=== PATIENT | male | born 1970 | race Caucasian/White ===

== ENCOUNTER 2018-08-16 18:05 | Emergency (ER) | payer OTHER ==
[~2018-08-16] VITALS: Ht 172.7 cm; Wt 90.7 kg
[2018-08-16 18:05] VITALS: BP 130/61
--- NOTE | 2018-08-16 19:33 | NUR ---
Pt w/c assisted to bed 7.
--- NOTE | 2018-08-16 19:50 | NUR ---
48 YO M BIBA DUE TO PT FOUND SLEEPING AT A BUS STOP BY CIVILIAN. PT IS AWAKE, GCS 15. A/O X 4. PT STATES HE DRANK "A LOT" AND SMOKED MARIJUANA TODAY. STRONG ALCOHOL ODOR NOTED. EYES PERRLA. PT HAS SLURRED SPEECH AND IS A POOR HISTORIAN. PT ALSO C/O LEFT ARM PAIN. HE STATES THAT HIS ARM WAS BROKEN BY POLICE. CANNOT PROVIDE ANY MORE DETAILS AT THIS TIME. PT IS GUARDING ARM. NO SWELLING, DISCOLORATION, OR GROSS DEFORMITY NOTED. SKIN PINK, WARM, DRY. BREATHING EVEN, UNLABORED. VSS. PMH-- HTN
--- NOTE | 2018-08-16 20:07 | NUR ---
Dr. Matos examining patient.
[2018-08-16] MEDS ORDERED: NACL 0.9% 1,000 ML IV ONE (20:10)
--- NOTE | 2018-08-16 20:35 | NUR ---
PT IS IN DEEP SLEEP. AROUSABLE TO STIMULI. SP02 SAT AT 90% ON RA. PT PLACED ON 2 LPM O2 VIA NC. SPO2 INCREASED TO 97%.
--- NOTE | 2018-08-16 21:03 | NUR ---
Patient provided with sandwich tray. Pt tolerateing well. IV fluids infusing. VSS. All needs addressed at this time.
--- NOTE | 2018-08-16 22:35 | NUR ---
PT SLEEPING DEEPLY. AROUSABLE TO STIMULI. VSS.
--- NOTE | 2018-08-16 23:12 | NUR ---
PT SLEEPING DEEPLY. AROUSABLE TO STIMULI. VSS.
--- NOTE | 2018-08-17 00:26 | NUR ---
PT SLEEPING DEEPLY. AROUSABLE TO STIMULI. VSS. SKIN PINK, WARM, DRY. BREATHING EVEN, UNLABORED.
--- NOTE | 2018-08-17 01:28 | NUR ---
PT SLEEPING DEEPLY. AROUSABLE TO STIMULI. VSS. SKIN PINK, WARM, DRY. BREATHING EVEN, UNLABORED.
--- NOTE | 2018-08-17 02:40 | NUR ---
PT SLEEPING DEEPLY. AROUSABLE TO STIMULI. VSS. SKIN PINK, WARM, DRY. BREATHING EVEN, UNLABORED.
--- NOTE | 2018-08-17 03:27 | NUR ---
PT SLEEPING DEEPLY. AROUSABLE TO STIMULI. VSS. SKIN PINK, WARM, DRY. BREATHING EVEN, UNLABORED.
--- NOTE | 2018-08-17 04:30 | NUR ---
PT SLEEPING DEEPLY. AROUSABLE TO STIMULI. VSS. SKIN PINK, WARM, DRY. BREATHING EVEN, UNLABORED.
--- NOTE | 2018-08-17 05:30 | NUR ---
PT SLEEPING DEEPLY. AROUSABLE TO STIMULI. VSS. SKIN PINK, WARM, DRY. BREATHING EVEN, UNLABORED.
--- NOTE | 2018-08-17 06:30 | NUR ---
PT IS AWAKE IN BED WITH VSS. PT STATES HE FEELS BETTER AND IS READY FOR DISCHARGE. REQUESTING BUS PASS.
[2018-08-17 07:07] VITALS: BP 140/54
--- NOTE | 2018-08-17 07:07 | NUR ---
Patient discharged with v/s stable. Written and verbal after care instructions given and explained. Patient verbalized understanding. Ambulatory with steady gait. All questions addressed prior to discharge. Advised to follow up with PMD. Provided pt with bus pass.
== END 2018-08-17 07:07 | disposition home or self-care (01) ==
LOC: MED 18:05
DX: F10.129 Alcohol abuse with intoxication, unspecified (principal); Z71.41 Alcohol abuse counseling and surveillance of alcoholic; Y90.8 Blood alcohol level of 240 mg/100 ml or more
CPT/HCPCS: 36415; 99283; G0482; J7030

== ENCOUNTER 2022-04-29 08:50 | Emergency (ER) | payer OTHER ==
[~2022-04-29] VITALS: Ht 165.1 cm; Wt 108.4 kg
--- NOTE | 2022-04-29 08:53 | NUR ---
BIBA TAKEN TO BED 9
[2022-04-29] MEDS ORDERED: levETIRAcetam 1,500 MG in NACL 0.9% 100 ML IV ONE (08:55)
[2022-04-29 08:57] VITALS: BP 142/80
--- NOTE | 2022-04-29 09:18 | NUR ---
ASSUMED PATIENT CARE, NURSING ASSESSMENT COMPLETED.
[2022-04-29 09:22] LABS: BASOPHILS % (AUTO) 0.6 % (0.0-2.0); EOSINOPHILS # (AUTO) 0.1 K/uL (0-0.4); EOSINOPHILS % (AUTO) 1.1 % (0.0-4.0); HEMATOCRIT 46.1 % (36-52); HEMOGLOBIN 15.3 g/dL (12.0-18.0); LYMPHOCYTES % (AUTO) 15.2 % (20.5-51.1); MEAN CORPUSCULAR HEMOGLOBIN 29 pg (27-31); MEAN CORPUSCULAR HGB CONC 33 g/dL (33-37); MEAN CORPUSCULAR VOLUME 87.6 fL (80-94); MONOCYTES # (AUTO) 0.4 K/uL (0.8-1.0); MONOCYTES % (AUTO) 6.7 % (1.7-9.3); NEUTROPHILS # (AUTO) 5.1 K/uL (1.8-7.7); NEUTROPHILS % (AUTO) 76.4 % (42.2-75.2); PLATELET COUNT (AUTO) 128 K/uL (140-450); RED BLOOD CELL COUNT(AUTO) 5.26 MIL/uL (4.20-6.10); RED CELL DISTRIBUTION WIDTH 14.3 % (11.6-13.7); WHITE BLOOD COUNT (AUTO) 6.7 K/uL (4.8-10.8)
[2022-04-29 10:35] LABS: ALBUMIN 4.3 g/dL (3.4-5.0); ANION GAP 25.6 (8-16); CARBON DIOXIDE 15.1 mmol/L (21-32); CREATININE 1.1 mg/dL (0.6-1.3); POTASSIUM 3.7 mmol/L (3.5-5.1); TOTAL BILIRUBIN 0.3 mg/dL (0.0-1.0)
[2022-04-29] MEDS ORDERED: NACL 0.9% 1,000 ML IV ONE (11:00)
[2022-04-29 13:06] LABS: ANION GAP 22.3 (8-16); CARBON DIOXIDE 18.4 mmol/L (21-32); POTASSIUM 3.7 mmol/L (3.5-5.1)
[2022-04-29 13:32] VITALS: BP 135/84
--- NOTE | 2022-04-29 13:35 | NUR ---
Patient discharged with v/s stable. Written and verbal after care instructions given and explained. Patient verbalized understanding. Ambulatory with steady gait. All questions addressed prior to discharge. Advised to follow up with PMD.
--- NOTE | 2022-04-29 14:24 | NUR ---
CALLED JULIEN BISHOP FOR REPORT. PATIENT DC VIA ER.
== END 2022-04-29 13:35 | disposition home or self-care (01) ==
LOC: MED 08:50
DX: G40.909 Epilepsy, unspecified, not intractable, without status epilepticus (principal); E86.0 Dehydration; I10 Essential (primary) hypertension; Z72.89 Other problems related to lifestyle; Z79.899 Other long term (current) drug therapy
CPT/HCPCS: 36415; 80048; 80053; 85025; 93005; 96361; 96365; 99284; J1953

== ENCOUNTER 2022-06-27 09:23 | Emergency (ER) | payer OTHER ==
[~2022-06-27] VITALS: Ht 165.1 cm; Wt 123.8 kg
[2022-06-27] MEDS ORDERED: MIDAZOLAM 5 MG/1 ML VIAL ONE (09:25)
[2022-06-27] MEDS ORDERED: MIDAZOLAM 5 MG/5 ML VIAL IV ONE (09:25)
--- NOTE | 2022-06-27 09:28 | NUR ---
Daniela LEDEZMA ATTENDING; Karrie GARCIA, PHP MAGENTO DEVELOPER; Don JUNIOR RCP ATTENDING; PATIENT PRESENTING WITH INTERMITTENT SEIZURE EPISODE; SUPPLEMENTAL OXYGEN AT 15 LPM VIA NON REBREATHER SATURATION 98%; GOOD CHEST RISE; INTERMITTENT SPONTANEOUS PRODUCTIVE COUGH OROPHARYNGEAL SUCTION FOR MODERATE TO LARGE PALE WHITE TO CLEAR FROTHY SECRETIONS; PHP MAGENTO DEVELOPER TO PREP FOR INTUBATION
[2022-06-27] MEDS ORDERED: INTUBATION KIT MC ONE (09:31)
[2022-06-27] MEDS ORDERED: PROPOFOL 1000 MG/100 ML PREMIX 100 ML IV ONE ×3 (09:39→12:12)
[2022-06-27] MEDS ORDERED: ETOMIDATE 20 MG/10 ML VIAL IVP ONE (09:40)
[2022-06-27] MEDS ORDERED: ROCURONIUM 50 MG/5 ML VIAL IV ONE (09:40)
[2022-06-27] MEDS ORDERED: LORazepam 2 MG/ML VIAL IVP ONE (09:40)
--- NOTE | 2022-06-27 09:42 | NUR ---
DR. BRUNA LEDEZMA AT BEDSIDE FOR INTUBATION; USING A GLIDESCOPE WITH 3 BLADE VOCAL CHORDS VISUALIZED PATIENT SUCCESSFULLY WITH AN ENDOTRACHEAL TUBE #8.0 SECURED AT 22cm WITH AN ANCHOR FAST; VIA A 10cc SYRINGE 8cc OF AIR INSERTED INTO ETT CUFF FOR MOV; ETT PLACEMENT CONFIRMATION CO2 DETECTOR YELLOW; BREATH SOUNDS CLEAR BILATERAL WITH EQUAL CHEST RISE; CXR TO FOLLOW
[2022-06-27 09:44] VITALS: BP 115/77
--- NOTE | 2022-06-27 09:47 | NUR ---
DR. BRUNA RHODES AT BEDSIDE; AWARE OF VENTILATOR OF SETTINGS; SOPHIA ERMD: ABG AFTER 30 MINUTES
--- NOTE | 2022-06-27 09:50 | NUR ---
CXR COMPLETED; PLACEMENT REVIEWED BY DR. RHODES; ETT 5.7cm ABOVE EDMOND; VORBO ERMD: ADVANCE ETT 2cm; 22cm TO 24cm
--- NOTE | 2022-06-27 09:53 | NUR ---
INTUBATION. DR RHODES, RT AND PRIMARY RN AT BEDSIDE. 0935-10MG ETOMIDATE GIVEN IVPUSH 0936-80MG ROCURONIUM GIVEN IVPUSH 0937-PT INTUBATED WITH 8.0 ETTUBE, 23" AT THE LIP. +COLOR CHANGE 0950-OG TUBE INSERTED. 0953- RAD AT BEDSIDE FOR VERIFICATION Addendum: 06/27/22 at 1003 by MEDVN1 20mg ROCURONIUM WASTED WITH BUTCH PALMER.
[2022-06-27 09:55] VITALS: BP 129/95
[2022-06-27] MEDS ORDERED: MIDAZOLAM 5 MG/1 ML VIAL NS ONE (09:55)
--- NOTE | 2022-06-27 09:59 | NUR ---
DIE REPAIR CALLED TO BEDSIDE; CXR REVIEWED BY DR. BRUNA CORTES: ADVANCE ETT 2cm; 24cm TO 26cm; CXR ETT NOW AT 3.3cm ABOVE EDMOND; ERMD AWARE
--- NOTE | 2022-06-27 10:00 | NUR ---
@0937 PT WAS INTUBATED BY DR RHODES. RTS AND RN AT BEDSIDE. PT WAS PREOXYGENATED WITH 100% FIO2 FROM AMBU BAG AND INTUBATED WITH ETT 8.0 SECURED WITH ANCHORFAST @22CM AT TEETH. COLOR CHANGE ON CO2 DETECTOR AND BI LATERAL BREATHE SOUNDS HEARD BY DR RHODES. XRAY WAS ORDERED TO CONFIRM PLACEMENT OF ETT. @941 DR RHODES ORDER TUBE TO BE ADVANCED 2CM DUE TO THE ETT 5.7CM ABOVE EDMOND. PT ETT IS NOW @ 24CM AT TEETH. ABG WAS ORDERED ALONG WITH SPUTUM ORDERED. WILL CONTINUE TO MONITOR.
--- NOTE | 2022-06-27 10:05 | NUR ---
ABG WAS COLLECTED AND RESULTS WERE GIVEN TO DR RHODES. NEW ORDER TO INCREASE RR FROM 18 TO 22 ANDF FIO2 FROM 100% TO 50%. SPUTUM WAS COLLECTED AND SENT TO LAB.
[2022-06-27] MEDS ORDERED: ASPI-1822 PO (10:17)
[2022-06-27] MEDS ORDERED: LEVE750T3 PO (10:17)
[2022-06-27] MEDS ORDERED: AMLO10TA PO (10:17)
--- NOTE | 2022-06-27 10:17 | NUR ---
SIRISHA COLLECTED AND SENT TO LAB
[2022-06-27] MEDS ORDERED: NACL 0.9% 1,000 ML IV ONE (10:20)
[2022-06-27 10:26] LABS: BASOPHILS # (AUTO) 0.1 K/uL (0.00-0.22); BASOPHILS % (AUTO) 1.1 % (0.0-2.0); EOSINOPHILS # (AUTO) 0.1 K/uL (0-0.4); HEMATOCRIT 45.3 % (36-52); HEMOGLOBIN 15.2 g/dL (12.0-18.0); LYMPHOCYTES # (AUTO) 0.7 K/uL (2.0-11.5); MEAN CORPUSCULAR HEMOGLOBIN 29 pg (27-31); MEAN CORPUSCULAR HGB CONC 34 g/dL (33-37); MEAN CORPUSCULAR VOLUME 87.5 fL (80-94); MONOCYTES # (AUTO) 0.5 K/uL (0.8-1.0); MONOCYTES % (AUTO) 4.9 % (1.7-9.3); NEUTROPHILS # (AUTO) 8.6 K/uL (1.8-7.7); PLATELET COUNT (AUTO) 135 K/uL (140-450); RED BLOOD CELL COUNT(AUTO) 5.18 MIL/uL (4.20-6.10); RED CELL DISTRIBUTION WIDTH 14.5 % (11.6-13.7); WHITE BLOOD COUNT (AUTO) 9.9 K/uL (4.8-10.8)
[2022-06-27] MEDS: levETIRAcetam 1,500 MG in NACL 0.9% 100 ML IV SCH ×3 (10:37→11:20)
[2022-06-27 10:41] LABS: APPEARANCE,URINE CLEAR (CLEAR); BILIRUBIN,URINE NEGATIVE (NEGATIVE); BLOOD, URINE 1+ (NEGATIVE); COLOR,URINE YELLOW (YELLOW); LEUKOCYTE ESTERASE ,URINE NEGATIVE (NEGATIVE); NITRITE, URINE NEGATIVE (NEGATIVE)
[2022-06-27 11:03] LABS: UGLUCOSE 3+ (NEGATIVE)
[2022-06-27 11:10] LABS: ALBUMIN 3.9 g/dL (3.4-5.0); ANION GAP 14.6 (8-16); ASPARTATE AMINOTRANSFERASE 30 U/L (15-37); CARBON DIOXIDE 24.1 mmol/L (21-32); CHLORIDE 101 mmol/L (98-107); CREATININE 0.9 mg/dL (0.6-1.3); GFR ARICAN-AMERICAN 115 mL/min (>90); GLUCOSE 146 mg/dL (74-106); POTASSIUM 3.7 mmol/L (3.5-5.1); SODIUM SERUM 136 mmol/L (136-145); TOTAL BILIRUBIN 0.3 mg/dL (0.0-1.0); UREA NITROGEN, BLOOD 6 mg/dL (7-18)
--- NOTE | 2022-06-27 11:23 | NUR ---
CALLED [facility], GAVE REPORT TO SPENCER MATHEWS.
[2022-06-27 11:24] LABS: BARBITURATE, URINE NEGATIVE ng/ml (NEG <=200); BENZODIAZEPINE, URINE NEGATIVE ng/mL (NEG <=200); CANNABINOID, URINE POSITIVE ng/mL (NEG <=50); COCAINE, URINE NEGATIVE ng/mL (NEG <=300); OPIATE, URINE NEGATIVE ng/mL (NEG <=2000); PHENCYCLIDINE SCREEN,URINE NEGATIVE ng/mL (NEG <=25)
[2022-06-27 11:28] VITALS: BP 145/72
--- NOTE | 2022-06-27 11:28 | NUR ---
STABLE SLIGHTLY IRRITABLE GOOD CHEST RISE AIRWAY PATENT; PREP FOR TRANSFER TO CT SCAN
--- NOTE | 2022-06-27 11:32 | NUR ---
TRANSFERRED TO RADIOLOGY FOR CT SCAN OF HEAD; REMOVED PATIENT FROM VENTILATOR PLACED ON SUPPLEMENTAL OXYGEN AT 15 LPM VIA E-TANK TO AMBU BAG/INLINE SUCTION CATHETER/HME/ETT; BAG DEPRESSION EVERY 6-8 SECONDS; TOLERATED TRANSFERS WELL WITHOUT ADVERSE REACTIONS NOTED SATURATION 99% HR 102
[2022-06-27 11:33] LABS: RBC,URINE 0-5 /HPF (0-5)
[2022-06-27 11:41] LABS: PROTHROMBIN TIME 10.4 secs (10.8-13.4)
--- NOTE | 2022-06-27 11:45 | NUR ---
accompanied to ct with rt and rn.
--- NOTE | 2022-06-27 11:57 | NUR ---
[facility] AT BEDSIDE FOR TRANSPORT
--- NOTE | 2022-06-27 12:25 | NUR ---
[facility] AT BEDSIDE. ARABELLA PALMER WITH [facility] TAKING OVER CARE.
[2022-06-27 12:41] VITALS: BP 105/76
--- NOTE | 2022-06-27 12:43 | NUR ---
Patient to be transferred to [facility] ER. Is being transferred due to . Receiving facility has accepting physician and available space. ER physician has signed transfer form. Patient or responsible alliance party has agreed to transfer and signed form. Patient belongings inventoried and will be sent with patient. Copy of nursing notes, lab reports, EKG, Physicians Orders and X-rays to be sent with patient. Report called to BISI PALMER at receiving facility. [facility] ambulance service was called for transfer. Mayda butler [facility] received patient care and report
[2022-06-27] MEDS ORDERED: levETIRAcetam 4,500 MG in NACL 0.9% 100 ML IV SCH (21:00)
== END 2022-06-27 12:41 | disposition short-term general hospital (02) ==
LOC: MED 09:23
DX: G40.909 Epilepsy, unspecified, not intractable, without status epilepticus (principal); Z20.822 Contact with and (suspected) exposure to COVID-19; J66.8 Airway disease due to other specific organic dusts; D69.6 Thrombocytopenia, unspecified; I10 Essential (primary) hypertension; F12.90 Cannabis use, unspecified, uncomplicated
CPT/HCPCS: 31500; 36415; 36600; 70450; 71045; 80053; 80173; 80305; 81001; 81003; 82550; 82803; 84484; 85025; 85610; 85730; 87426; 89220; 93005; 94760; 94770; 96361; 96365; 96375; 99291; J1953; J2060; J2250; J2704; J3490; J7030; Q0092

== ENCOUNTER 2022-08-09 17:07 | Inpatient (IN) | payer OTHER ==
[~2022-08-09] VITALS: Ht 180.3 cm; Wt 116.1 kg
[2022-08-09] VITALS (7 sets, daily range): BP systolic 74–124; BP diastolic 55–85; PULSE 85–148; RESP 10–25; TEMP 97.6; O2SAT 93–100
[~2022-08-09 17:07] MED LIST: AMLO10TA PO; ASPI-1822 PO; LEVE750T3 PO
--- NOTE | 2022-08-09 17:09 | NUR ---
52 YO M PT OPAL W/ACTIVE SEIZUREMD AND ER STAFF AT BEDSIDE
[2022-08-09] MEDS ORDERED: NACL 0.9% 1,000 ML IV ONE (17:20)
[2022-08-09] MEDS ORDERED: LORazepam 2 MG/ML VIAL IVP ONE (17:20)
--- NOTE | 2022-08-09 17:27 | NUR ---
INTUBATION PER MD VITAL 1727 - ETOMIDATE 40MG IVP 1728 - ROCURONIUM 200MG IVP 1730 - 21 MEASURE AT TEETH, 8.0 SIZE TUBE
[2022-08-09] MEDS ORDERED: ROCURONIUM 50 MG/5 ML VIAL IV ONE ×2 (17:50→20:00)
[2022-08-09] MEDS ORDERED: ETOMIDATE 20 MG/10 ML VIAL IVP ONE ×2 (17:50→20:00)
[2022-08-09] MEDS ORDERED: levETIRAcetam 1,000 MG in NACL 0.9% 100 ML IV ONE (17:50)
--- NOTE | 2022-08-09 17:54 | NUR ---
SIRISHA SWABBED AT THIS TIME
--- NOTE | 2022-08-09 18:20 | NUR ---
Note undone in EDM - 08/09/22 at 1930 by MEDPMR 52 Y/O MALE OPAL FROM [facility], PT HAD WITNESSED SEIZURE AT FACILITY, PT FELL ON CARPET AFTER SEIZURE, TONIC CLONIC FOR 2 MINUTES AND HAD 1 MORE EPISODE LASTING 2 MINUTES EN ROUTE. PT WAS GIVEN 10MG VERSED INH. PT HAS GTUBE IN PLACE AND TRACH TO VENT. PATIENT POSITIONED FOR COMFORT; HOB ELEVATED; BEDRAILS UP X2; BED DOWN. ER MD MADE AWARE OF PT STATUS. PMH: CHRONIC RESPIRATORY FAILURE, VENTILATOR DEPENDENT, GASTROSTOMY, DM2, CEREBRAL PALSY, EPILEPSY, ANEMIA, ESBL, HLD, ASTHMA, TYPE 1 DIABETES, ACUTE EMBOLISM NKA
--- NOTE | 2022-08-09 18:20 | NUR ---
52 Y/O MALE BIBA FROM [facility], PT HAD WITNESSED SEIZURE AT FACILITY, PT FELL ON CARPET AFTER SEIZURE, TONIC CLONIC FOR 2 MINUTES AND HAD 1 MORE EPISODE LASTING 2 MINUTES EN ROUTE. PT WAS GIVEN 10MG VERSED INH. PATIENT POSITIONED FOR COMFORT; HOB ELEVATED; BEDRAILS UP X2; BED DOWN. ER MD MADE AWARE OF PT STATUS. PMH: CHRONIC RESPIRATORY FAILURE, VENTILATOR DEPENDENT, GASTROSTOMY, DM2, CEREBRAL PALSY, EPILEPSY, ANEMIA, ESBL, HLD, ASTHMA, TYPE 1 DIABETES, ACUTE EMBOLISM NKA
--- NOTE | 2022-08-09 18:24 | NUR ---
PT RETURNED BACK FROM CT
--- NOTE | 2022-08-09 18:25 | NUR ---
Took pt to ct from ER on 100% FiO2 w/ BMV w/o incident, pt is now back in ER on CARESCAPE vent that is plugged into red outlet, pt was sxn for large clear thick secretions, airway is patent and secure, no signs of respiratory distress noted at this time.
[2022-08-09] MEDS ORDERED: PIPERACILLIN/TAZOBACTAM 3.375 GM in DEXTROSE 5% 50 ML IV ONE (18:30)
[2022-08-09 18:47] LABS: BASOPHILS % (AUTO) 0.3 % (0.0-2.0); EOSINOPHILS # (AUTO) 0.1 K/uL (0-0.4); EOSINOPHILS % (AUTO) 0.3 % (0.0-4.0); HEMATOCRIT 46.2 % (36-52); HEMOGLOBIN 15.6 g/dL (12.0-18.0); LYMPHOCYTES # (AUTO) 1.2 K/uL (2.0-11.5); LYMPHOCYTES % (AUTO) 7.1 % (20.5-51.1); MEAN CORPUSCULAR HEMOGLOBIN 29 pg (27-31); MEAN CORPUSCULAR HGB CONC 34 g/dL (33-37); MEAN CORPUSCULAR VOLUME 86.8 fL (80-94); MONOCYTES # (AUTO) 1.5 K/uL (0.8-1.0); MONOCYTES % (AUTO) 9.2 % (1.7-9.3); NEUTROPHILS # (AUTO) 13.5 K/uL (1.8-7.7); NEUTROPHILS % (AUTO) 83.1 % (42.2-75.2); PLATELET COUNT (AUTO) 162 K/uL (140-450); RED BLOOD CELL COUNT(AUTO) 5.32 MIL/uL (4.20-6.10); RED CELL DISTRIBUTION WIDTH 14.3 % (11.6-13.7); WHITE BLOOD COUNT (AUTO) 16.2 K/uL (4.8-10.8)
--- NOTE | 2022-08-09 18:47 | NUR ---
Dr. Hayes ordered to advance ETT 4cm. ETT is now 24cm at teeth. Airway patent and secure no signs of respiratory distress noted at this time.
[2022-08-09] MEDS ORDERED: PIPERACILLIN/TAZOBACTAM 3.375 GM VIAL IV ONE (18:54)
[2022-08-09] MEDS ORDERED: PROPOFOL 1000 MG/100 ML PREMIX 100 ML IV ONE ×3 (18:54→23:13)
[2022-08-09] MEDS ORDERED: levETIRAcetam 100 MG/ML VIAL IV ONE ×2 (18:55→22:55)
[2022-08-09 19:09] LABS: ALBUMIN 4.3 g/dL (3.4-5.0); ANION GAP 15.9 (8-16); ASPARTATE AMINOTRANSFERASE 34 U/L (15-37); CARBON DIOXIDE 25.5 mmol/L (21-32); CHLORIDE 100 mmol/L (98-107); CREATININE 0.8 mg/dL (0.6-1.3); GFR ARICAN-AMERICAN 131 mL/min (>90); GLUCOSE 125 mg/dL (74-106); POTASSIUM 3.4 mmol/L (3.5-5.1); SALICYLATE < 2.8 mg/dL (2.8-20.0); SODIUM SERUM 138 mmol/L (136-145); TOTAL BILIRUBIN 0.5 mg/dL (0.0-1.0); UREA NITROGEN, BLOOD 10 mg/dL (7-18)
[2022-08-09 19:10] LABS: ACETAMINOPHEN < 0.5 ug/ml (10-30)
--- NOTE | 2022-08-09 19:15 | NUR ---
Pt report given to CHRIS PALMER. Transfer of care at this time.
--- NOTE | 2022-08-09 19:25 | NUR ---
Propofol drip started.
--- NOTE | 2022-08-09 19:30 | NUR ---
Urine collected and sent to lab.
--- NOTE | 2022-08-09 19:40 | NUR ---
RT by bedside at this time.
[2022-08-09 19:42] LABS: APPEARANCE,URINE CLEAR (CLEAR); BILIRUBIN,URINE NEGATIVE (NEGATIVE); BLOOD, URINE TRACE-I (NEGATIVE); COLOR,URINE YELLOW (YELLOW); LEUKOCYTE ESTERASE ,URINE TRACE (NEGATIVE); NITRITE, URINE NEGATIVE (NEGATIVE); UGLUCOSE TRACE (NEGATIVE)
--- NOTE | 2022-08-09 19:46 | NUR ---
PER ABG RESULTS DR. MONTANEZ ORDERED TO INCREASE RR TO 27 BPM. NO SIGNS OF RESPIRATORY DISTRESS NOTED AT THIS TIME. Addendum: 08/10/22 at 0134 by Mehdi Berry RT CORRECTION: INCREASE RR TO 24BPM
--- NOTE | 2022-08-09 19:56 | NUR ---
ADVANCED ETT TO [address] MONTANEZ, AIRWAY SECURE AND PATENT, NO SIGNS OF RESPIRATORY DISTRESS NOTED AT THIS TIME.
--- NOTE | 2022-08-09 20:10 | NUR ---
Pt agitated and restless despite propofol drip running. ERMD was made aware and new orders were received.
[2022-08-09] MEDS ORDERED: MORPHINE SULFATE 4 MG/ML SYR IVP PRN (20:35)
[2022-08-09] MEDS ORDERED: MAG SULF 2000 MG/WATER PREMIX 50 ML IV PRN (20:35)
[2022-08-09] MEDS ORDERED: ONDANSETRON 4 MG/2 ML VIAL IVP PRN (20:35)
[2022-08-09 20:36] LABS: BARBITURATE, URINE NEGATIVE ng/ml (NEG <=200); BENZODIAZEPINE, URINE NEGATIVE ng/mL (NEG <=200); CANNABINOID, URINE POSITIVE ng/mL (NEG <=50); COCAINE, URINE NEGATIVE ng/mL (NEG <=300); OPIATE, URINE NEGATIVE ng/mL (NEG <=2000); PHENCYCLIDINE SCREEN,URINE NEGATIVE ng/mL (NEG <=25)
[2022-08-09] MEDS ORDERED: LORazepam 2 MG/ML VIAL IVP PRN (20:40)
[2022-08-09] MEDS ORDERED: MIDAZOLAM MDV 50 MG/10 ML VIAL IV ONE (20:47)
[2022-08-09] MEDS: MIDAZOLAM MDV 50 MG in NACL 0.9% 40 ML IV SCH (21:06)
--- NOTE | 2022-08-09 21:29 | NUR ---
Pt resting comfortably at this time. VSS.
--- NOTE | 2022-08-09 21:45 | NUR ---
Report given to Sandra PALMER
--- NOTE | 2022-08-09 21:50 | NUR ---
TRANSFER OF CARE FROM ER, [facility]. PATIENT ARRIVED TO ICU VIA GURNEY. PATIENT HAS OG TUBE AND IS INTUBATED AND SEDATED WITH THE FOLLOWING VENT SETTINGS: AC/VC, FIO2 = 100%, VT = 500, R = 24, P = 5. VITALS AT TIME OF ADMISSION ARE FOLLOWS, HR = 95, BP = 114/82, R = 24, O2 SAT = 100%, TEMP = 97.1F. PATIENT HAS RIGHT EJ 20G PERIPHERAL LINE, RIGHT HAND 22G PERIPHERAL LINE, AND LEFT THUMB 22G PERIPHERAL LINE. PATIENT HAS SHAW CATHETER IN PLACE WITH YELLOW CLEAR URINE IN THE URINE COLLECTION BAG. PATIENT HAS BILATERAL SOFT WRIST RESTRAINTS. THE FOLLOWING MEDICATIONS ARE INFUSING AT TIME OF ADMISSION, PROPOFOL 1000MG AT 30MCG/KG/MIN AND VERSED 2MG/HR
--- NOTE | 2022-08-09 22:00 | NUR ---
Transfer of care to Sandra PALMER
[2022-08-09] MEDS: DEXT 5% / NACL 0.9% 500 ML IV SCH (23:07)
[2022-08-09] MEDS: levETIRAcetam 1,000 MG in NACL 0.9% 100 ML IV SCH (23:07)
[2022-08-09] MEDS: PROPOFOL 1000 MG/100 ML PREMIX 100 ML IV PRN (23:13)
[2022-08-10] VITALS (34 sets, daily range): BP systolic 80–151; BP diastolic 53–97; PULSE 43–78; RESP 15–25; TEMP 97.4–98.1; O2SAT 98–100
[2022-08-10] MEDS ORDERED: PIPERACILLIN/TAZOBACTAM 3.375 GM VIAL IV ONE ×2 (00:41→05:56)
[2022-08-10] MEDS: PIPERACILLIN/TAZOBACTAM 3.375 GM in DEXTROSE 5% 50 ML IV SCH ×4 (01:01→17:32)
--- NOTE | 2022-08-10 01:21 | NUR ---
SPO2 READING 100%. FiO2 TITRATED FROM 100% TO 80%. SPO2 100%. PT IS TOLERATING AT THIS TIME. NO RESPIRATORY DISTRESS NOTED. RN NOTIFIED. WILL CONTINUE TO MONITOR PT.
[2022-08-10] MEDS: DEXT 5% / NACL 0.9% 500 ML IV SCH ×4 (02:20→17:31)
--- NOTE | 2022-08-10 02:43 | NUR ---
CALL PLACED TO [facility], SPOKE WITH ATTILA AND REQUESTED THAT DR. KOCH IS PAGED. PATIENT WITH HYPOTENSION xAPPROXIMATELY HOURS, PROPOFOL HAS BEEN TITRATED DOWN TO 30 FROM 50, PATIENT IS RECEIVING IVF AT 100MLS/HR AND BLOOD PRESSURE HAS NOT IMPROVED. Addendum: 08/10/22 at 4562 by Sandra Fitch RN CALL WAS PLACED AT [phone]
--- NOTE | 2022-08-10 02:52 | NUR ---
CALL PLACED TO [facility], SPOKE WITH SHAAN AND REQUESTED THAT DR. KOCH IS PAGED. PATIENT WITH HYPOTENSION xAPPROXIMATELY HOURS, PROPOFOL HAS BEEN TITRATED DOWN TO 30 FROM 50, PATIENT IS RECEIVING IVF AT 100MLS/HR AND BLOOD PRESSURE HAS NOT IMPROVED.
--- NOTE | 2022-08-10 02:54 | NUR ---
RECEIVED CALL BACK FROM DR. KOCH, PROVIDED UPDATE ON PATIENTS CURRENT STATUS, RECEIVED ORDERS FOR LEVOPHED
[2022-08-10] MEDS ORDERED: NOREPINEPHRINE 4 MG in DEXTROSE 5% 250 ML IV PRN (03:00)
[2022-08-10] MEDS: PROPOFOL 1000 MG/100 ML PREMIX 100 ML IV PRN ×5 (03:48→22:22)
[2022-08-10] MEDS ORDERED: PROPOFOL 1000 MG/100 ML PREMIX 100 ML IV ONE (03:48)
--- NOTE | 2022-08-10 04:14 | NUR ---
SPO2 READING 100%. FiO2 TITRATED FROM 80% TO 50%. SPO2 98%. PT IS TOLERATING AT THIS TIME. NO RESPIRATORY DISTRESS NOTED. RN NOTIFIED. WILL CONTINUE TO MONITOR PT.
[2022-08-10 05:24] LABS: BASOPHILS # (AUTO) 0.1 K/uL (0.00-0.22); BASOPHILS % (AUTO) 0.8 % (0.0-2.0); EOSINOPHILS # (AUTO) 0.1 K/uL (0-0.4); EOSINOPHILS % (AUTO) 0.7 % (0.0-4.0); HEMOGLOBIN 13.6 g/dL (12.0-18.0); LYMPHOCYTES # (AUTO) 1.8 K/uL (2.0-11.5); LYMPHOCYTES % (AUTO) 15.8 % (20.5-51.1); MEAN CORPUSCULAR HEMOGLOBIN 30 pg (27-31); MEAN CORPUSCULAR HGB CONC 34 g/dL (33-37); MEAN CORPUSCULAR VOLUME 86.8 fL (80-94); MONOCYTES # (AUTO) 1.2 K/uL (0.8-1.0); MONOCYTES % (AUTO) 10.6 % (1.7-9.3); NEUTROPHILS # (AUTO) 8.4 K/uL (1.8-7.7); NEUTROPHILS % (AUTO) 72.1 % (42.2-75.2); PLATELET COUNT (AUTO) 160 K/uL (140-450); RED BLOOD CELL COUNT(AUTO) 4.61 MIL/uL (4.20-6.10); RED CELL DISTRIBUTION WIDTH 14.3 % (11.6-13.7); WHITE BLOOD COUNT (AUTO) 11.6 K/uL (4.8-10.8)
[2022-08-10 05:26] LABS: ANION GAP 13.4 (8-16); CREATININE 0.9 mg/dL (0.6-1.3); POTASSIUM 3.4 mmol/L (3.5-5.1)
--- NOTE | 2022-08-10 05:32 | NUR ---
SPO2 READING 100%. FiO2 TITRATED FROM 50% TO 40%. SPO2 99%. PT IS TOLERATING AT THIS TIME. NO RESPIRATORY DISTRESS NOTED. RN NOTIFIED. WILL CONTINUE TO MONITOR PT.
--- NOTE | 2022-08-10 07:09 | NUR ---
[facility], REPORT ENDORSED TO JAMIL
[2022-08-10] MEDS ORDERED: MIDAZOLAM MDV 50 MG/10 ML VIAL IV ONE (07:14)
[2022-08-10] MEDS: MIDAZOLAM MDV 50 MG in NACL 0.9% 40 ML IV SCH (07:20)
--- NOTE | 2022-08-10 07:30 | NUR ---
IV site 22 g, to RIGHT hand removed intact. R hand with slight swelling, no wounds noted. Pt. tolerated with no difficulty.
--- NOTE | 2022-08-10 07:30 | NUR ---
Report received from film processing shift supervisor Sandra RN, Pt. in room 1. Pt is orally intubated with ET in place secured. Vent at A/C VC 40 FiO2. Pt. tolerating with no diff. No acute distress. No resp. diff. Tate cath in place draining clear and yellow urine. IV site to left thumb in place intact infusing with no diff. IV site to Right hand swollen site and will be D/C soon. No IV fluid or solution infusing at the moment. Will cont. to monitor/
[2022-08-10] MEDS ORDERED: hePARIN / DEXT 5% PREMIX 250 ML IV ONE (07:52)
--- NOTE | 2022-08-10 08:58 | NUR ---
PATIENT HAS BEEN SCREENED AND CATEGORIZED MODERATE NUTRITION RISK. PATIENT WILL BE SEEN WITHIN 3-5 DAYS OF ADMISSION. 08/12/22-08/14/[address]
--- NOTE | 2022-08-10 09:04 | NUR ---
PT. WITH LOW JOHNATHON SCALE AT MODERATE TO HIGH RISK, CONTINUE TO FOLLOW PRESSURE INJURY PREVENTION INTERVENTIONS. -POSITIONING: TURN AND REPOSITION PATIENT Q 2H OR SOONER USE PILLOWS TO KEEP BONY PROMINENCES FROM DIRECT CONTACT WITH SURFACES USE REPOSITIONING WEDGES TO PROVIDE 30-DEGREE ANGLE FOR SIDE LYING POSITIONS OFFLOADING OR FOAM DRESSING TO ALL TUBING TO PREVENT MEDICAL DEVICES RELATED PRESSURE INJURY -RE-EVALUATING AND MANAGING INCONTINENCE MONITOR SKIN CONDITION DURING POSITION CHANGE DO NOT MASSAGE REDNESS, BONY PROMINENCES FREQUENT AGNES-CARE AND PROVIDE BARRIER CREAMS PRN IF SOILING MOISTURE CONTROL BY OFFER BED CHAVEZ/URINAL /ABSORBENT PAD TO WICK AND HOLD MOISTURE KEEP SKIN DRY AND PROTECT FROM FRICTION -MANAGE FRICTION/SHEAR/MOBILITY KEEP HOB AT THE LOWEST LEVEL OF ELEVATION NO MORE THAN 30 DEGREE UNLESS OTHERWISE CONTRAINDICATED USE LIFT SHEET OR TRANSFER DEVICE TO MOVE PATIENT AND PREVENT LATERAL SHEER. PROTECT HEELS, ELBOWS BONY PROMINENCES WITH SKIN BERRIES OR FOAM DRESSING IF EXPOSED TO FRICTION OFFLOAD BILATERAL HEELS BY PLACING PILLOWS UNDER CALVES AT ALL TIMES, UNLESS OTHERWISE CONTRAINDICATED -PRESSURE REDISTRIBUTION SURFACE THERAPY MANUEL ISOFLEX MATTRESS -NUTRITION: PLEASE FOLLOW RD RECOMMENDATIONS AND OFFER NUTRITION SUPPLEMENTS IF ORDERED. PLEASE CONTACT WOUND CARE NURSE FOR ANY QUESTION AND CHANGE OF WOUND CONDITION.
--- NOTE | 2022-08-10 09:12 | NUR ---
DC PLANNING A 52 YO RESIDENT OF [facility] ADMITTED FOR TONIC CLONIC -SIZURE PMX SEIZURES ON KERA.PATINET HAD WITNESSED FALL.IN ED PATIENT WAS GIVEN VERSED AND ATIVAN FOR CONTINUED SEIZURE AND WAS INTUBATED FOR AIRWAY PROTECTION.WAS PLACED ON PROPOFOL FOR SEDATION.CXR SUGGESTIVE OF PNEUMONIA.ON ZOSYN AND LEVETIRACETAM .CT HEAD NEGATIVE FOR IC BLEED OR MASS EFFECT.COVID (-).WBC 16.2UDS (+) FOR THC.PULMO ON BOARD.DC PLAN -BACK TO [facility] WHEN PATIENT RESPONDS TO TX.CM TO FOLLOW. Addendum: 08/13/22 at 1052 by ROSINA TIRADO CM FAXED INSURANCE [facility] REQUESTING AUTH FOR A NEUROLOGIST FOLLOW UP IN 1-2 WEEKS. Addendum: 08/13/22 at 1344 by MIKE RODRIGUEZ CM DC PLANNING PATIENT SELF EXTUBATED AT 08/11/22.ON 4L NASAL CANNULA NOW.CXR 08/10 WITH IMPROVED AERATION RIGHT LUNGS.WBC DOWN TO 6.6.PATIENT WILL GO BACK TO [facility]ISTED [facility]IV[facility] TODAY.CHANDAN FROM [facility] NOTIFIED.ADVISED TATIANA AT [facility] .PATIENT TO GO TO ROOM 105.SEEN BY PT AND RECOMMENDED BACK TO ASSISTED LIVING WITH ASSIST.ICU NURSE TO GIVE REPORT TO [facility].
[2022-08-10] MEDS: levETIRAcetam 1,000 MG in NACL 0.9% 100 ML IV SCH (09:21)
--- NOTE | 2022-08-10 10:00 | NUR ---
Shift update, remains orally intubated with ET in place. Vent at A/C VC 40% FiO2. Oral Gastric tube in place tapped with ET and secured. NO suction at this time. OG tube capped and not being used now. Pt. tolerating with no diff. No acute distress. No resp. diff. Tate cath in place draining clear and yellow urine. IV site to left thumb in place intact infusing with no diff. Order to PICC line place obtained and PICC placement RN has been called and scheduled to come in. Pt.'s mother at bedside visiting pt. Will cont. to monitor.
--- NOTE | 2022-08-10 11:15 | NUR ---
PICC line RN arrived to place line. Pt. with no change is status. NO acute distress. NO SOB. Will cont. to monitor.
--- NOTE | 2022-08-10 11:50 | NUR ---
PICC line RN finished placing central line. Dressing intact and flushing with no difficulty. Per PICC line RN line can be used after X-ray were done to confirm proper placement. IV fluids switched to PICC line for infusion. Pt. with no change in status.
--- NOTE | 2022-08-10 12:00 | NUR ---
Pt.'s mother at beside visiting. Pt. remains sedated but easily aroused. Pt. is able to follow simple commands and move left and right fingers as commanded. Pt. also follows commands to move toes appropriately. No seizure activity noted. Pt. still intubated with no acute distress. Seizure precautions in place. Pt. with no acute distress.
[2022-08-10] MEDS ORDERED: MIDAZOLAM MDV 100 MG in NACL 0.9% 80 ML IV PRN (14:55)
[2022-08-10] MEDS ORDERED: MIDAZOLAM MDV 50 MG in NACL 0.9% 40 ML IV PRN (15:20)
--- NOTE | 2022-08-10 16:00 | NUR ---
Pt. remains orally intubated with ventilator at bedside, tolerating with no diff. Tate cath in place with clear yellow urine. Pt. denies pain, no sx of pain. IV fluid infusing to R UPPER arm PICC line with dressing intact. No SOB, no acute distress. Total hygiene care provided, all linen changed, bed bath done.
--- NOTE | 2022-08-10 16:11 | NUR ---
Security Coordinator SUPERVISOR LIVESTOCK YARD conducted a Discharge Planning Assessent. Pt. is intubated in ICU. SUPERVISOR LIVESTOCK YARD called Pts. Assisted Living, [facility], but noone answered phone. After two attempts, SUPERVISOR LIVESTOCK YARD called Pts. mom, Rosangela who was able to answer questions for the Discharge Planning Assessment. Mom stated pt. resides at the [facility] for the past 6 mo. and prior to that he resided at [facility]. Pt. once took off and left this facility and went to the liquor store then became lost. Later the police found him curled up in a ball. Mom stated pt. was scared and fearful. Mom stated pt. has seizures and everytime he has one, "He losing oxygen and his brain does not function right" Mom stated she has Huntingons Disease and feels pt. may be at risk of getting it. SUPERVISOR LIVESTOCK YARD stated she will inform the CM. SUPERVISOR LIVESTOCK YARD leaned pt. is high functioning and according to mom, is able to do his daily activities. SUPERVISOR LIVESTOCK YARD will remain available as needed.
--- NOTE | 2022-08-10 17:36 | NUR ---
Shift update, remains orally intubated with ET in place. Vent at A/C VC 30% FiO2. Oral Gastric tube in place tapped with ET and secured. NO suction at this time. OG tube capped and not being used now. Pt. tolerating with no diff. No acute distress. No resp. diff. Tate cath in place draining clear and yellow urine. PICC line to right upper arm with dressing intact and IV fluid infusing with no diff. Will cont. to monitor.
--- NOTE | 2022-08-10 18:24 | NUR ---
Dr. Phillips, Neurologist, at bedside to examine pt.
--- NOTE | 2022-08-10 19:09 | NUR ---
Report endorsed to mine shifter SPENCER Lemons Pt. remains orally intubated with ET in place. Vent at A/C VC 30% FiO2, rate 24. Oral Gastric tube in place tapped with ET and secured. NO suction at this time. OG tube capped and not being used now. Pt. tolerating with no diff. No acute distress. No resp. diff. Tate cath in place draining clear and yellow urine. HR with bradycardia at times but when pt. is stimulated, his heart rate goes up. BP is stable. PICC line to right upper arm with dressing intact and IV fluid infusing with no diff. Pt. with no seizure activity during entire shift. Will cont. to monitor.
--- NOTE | 2022-08-10 19:20 | NUR ---
RECEIVED REPORT FROM [facility] NURSE, JAMILRN. ALL CARES ASSUMED. RECEIVED PT IN BED ON SEMI-GENTILE'S POSITION WITH SIDE RAILS RAISED UP FOR SAFETY. PT IS ORALLY INTUBATED AND SEDATED, AROUSABLE TO SHAKING AND PAIN STIMULI. WITH PARTIAL OPENING OF EYES OBSERVED. WITH ETT ON MECHANICAL VENTILATOR ON AC/VC MODE SETTINGS WITH FIO2 AT 30% RR-24CPM TV-500ML, PEEP-5, O2SAT AT 100%WITH EQUAL CHEST RISE OBSERVED. WITH OGT - CLOSED - INTACT AND PATENT. ON SINUS BRADYCARDIA ON RAISE DRILLER. AFEBRILE. WITH RIGHT UPPER PICC LINE - DRY AND INTACT WITH FLOWING D5-0.9 NS AT 100ML.HR, PROPOFOL AT 35 MCG/KG, VERSED AT 2 MG/HR - PATENT. WITH BILATERAL SOFT WRIST RESTRAINTS. WITH SHAW CATHETER DRAINING TO GRAVITY, YELLOW COLORED OUTPUT OBSERVED. WITH DRY HEALED SCAR ON LEFT LOWER MURRELL, THE REST IS INTACT. SAFETY AND SEIZURE PRECAUTION INITIATED AND MAINTAINED. APPLIED PADDED SIDE RAILS . WILL CLOSELY MONITOR PT.
--- NOTE | 2022-08-10 20:00 | NUR ---
POSITIONED WELL IN BED. MOUTH CARE GIVEN. ORAL AND ETT SECRETIONS SUCTIONED NEEDED.
[2022-08-10] MEDS: levETIRAcetam 100 MG/ML ORASYR NG SCH (20:39)
--- NOTE | 2022-08-10 20:50 | NUR ---
2031 ABG WAS DRAWN. DAYSHIFT UNABLE TO GET ABG. RESULTS IN [facility].NO CHANGES MADE ON VENT POST ABG RESULTS.
--- NOTE | 2022-08-10 22:00 | NUR ---
PT MOANING AND AGITATED. PRECEDEX INCREASED TO 0.3 MCG/KG/HR. KEPT MONITORED. Addendum: 08/11/22 at 0351 by RONDA DODSON RN WRONG ENTRY
--- NOTE | 2022-08-10 22:16 | NUR ---
2205 PATIENT AWAKE AND MOVING IN BED. VENT IS ALARMING. PATIENT SXNED.. NO CHANGES MADE ON VENT..
--- NOTE | 2022-08-10 23:00 | NUR ---
HEART RATE DECREASING TO 40'S. PROPOFOL TITRATED DOWN TO 30.
[2022-08-11] VITALS (31 sets, daily range): BP systolic 116–181; BP diastolic 36–104; PULSE 41–96; RESP 16–26; TEMP 97.1–98.1; O2SAT 95–100
[2022-08-11] MEDS: PIPERACILLIN/TAZOBACTAM 3.375 GM in DEXTROSE 5% 50 ML IV SCH ×4 (00:16→18:29)
[2022-08-11] MEDS: MIDAZOLAM MDV 50 MG in NACL 0.9% 40 ML IV SCH (02:23)
[2022-08-11] MEDS: PROPOFOL 1000 MG/100 ML PREMIX 100 ML IV PRN ×2 (02:33→08:49)
[2022-08-11] MEDS: DEXT 5% / NACL 0.9% 500 ML IV SCH ×4 (03:20→13:20)
[2022-08-11 05:29] LABS: BASOPHILS # (AUTO) 0.1 K/uL (0.00-0.22); BASOPHILS % (AUTO) 0.8 % (0.0-2.0); EOSINOPHILS # (AUTO) 0.1 K/uL (0-0.4); EOSINOPHILS % (AUTO) 1.7 % (0.0-4.0); HEMOGLOBIN 13.9 g/dL (12.0-18.0); LYMPHOCYTES # (AUTO) 1.2 K/uL (2.0-11.5); LYMPHOCYTES % (AUTO) 17.2 % (20.5-51.1); MEAN CORPUSCULAR HEMOGLOBIN 30 pg (27-31); MEAN CORPUSCULAR HGB CONC 35 g/dL (33-37); MEAN CORPUSCULAR VOLUME 86.8 fL (80-94); MONOCYTES # (AUTO) 0.7 K/uL (0.8-1.0); MONOCYTES % (AUTO) 9.5 % (1.7-9.3); NEUTROPHILS % (AUTO) 70.8 % (42.2-75.2); PLATELET COUNT (AUTO) 124 K/uL (140-450); RED CELL DISTRIBUTION WIDTH 14.2 % (11.6-13.7); WHITE BLOOD COUNT (AUTO) 7.1 K/uL (4.8-10.8)
[2022-08-11 05:30] LABS: ANION GAP 13.6 (8-16); CARBON DIOXIDE 24.1 mmol/L (21-32); CREATININE 0.8 mg/dL (0.6-1.3)
[2022-08-11 05:46] LABS: POTASSIUM 2.7 mmol/L (3.5-5.1)
--- NOTE | 2022-08-11 07:00 | NUR ---
PT WITH EPISODES OF BRADYCARDIA - SEDATIONS TITRATED ACCORDINGLY AND STIMULATION DONE. BED BATH DONE AND LINENS CHANGED. NO BOWEL MOVEMENT ON MY SHIFT. RESPONSIVE AT TIMES BY OPENING EYES AND NODDING. REPORT GIVEN TO DAY SHIFT NURSE, SPENCER FARNSWORTH. ALL QUESTIONS ANSWERED.
--- NOTE | 2022-08-11 07:58 | NUR ---
Received report from shift supervisor rn nurse Rigoberto Lemons RN. Pt orally intubated with ETT to vent in place. Vent AC VC FIO2 30%, VT 500, RR 24, Peep 5. Patient sedated with Propofol and Versed with Dextrous 0.9% and Potassium Chloride infusing to right upper arm PICC line with dressing intact. No redness or ecchymosis to insertion site. Pt only responds to physical stimulation with sternal rub or shaking. Lung sounds are diminished but present in all lobes to auscultation. Abdomen soft with all quadrants hypoactive. Patient skin intact except with scar on the left lower villegas no drainage noted. Tate catheter in place with clear yellow urine and no dependent loops and secured with stat lock. Bilateral soft wrist restraints for safety, HOB of bed at 30 degrees to prevent aspiration, bed of wheels locked and bed in lowest position, no acute distress or SOB noted. Will continue to follow plan of care.
--- NOTE | 2022-08-11 08:30 | NUR ---
Turned off Versed. Patient heart rate 38. No acute distress or SOB noted. Will continue to follow plan of care.
[2022-08-11] MEDS: levETIRAcetam 100 MG/ML ORASYR NG SCH ×2 (08:42→20:34)
--- NOTE | 2022-08-11 09:03 | NUR ---
Increased agitation after Versed drip turned off due to pt.'s persistent bradycardia. Propofol drip increased to control pt.'s agitation and to stop pt. from reaching up to his mouth and pulling ET out. Pt. remains intubated with ventilator at bedside. Pt.'s RN Lynn at bedside as well to closely monitor pt.
--- NOTE | 2022-08-11 10:13 | NUR ---
Dr. Bryant rounded at patients bedside. Notified MD that Versed was turned off due to patient HR at 38. New ordered received. Start patient on Protonix 40mg IVP daily.
[2022-08-11] MEDS ORDERED: hydrALAZINE 20 MG/ML VIAL IVP PRN (10:20)
--- NOTE | 2022-08-11 10:50 | NUR ---
Dr. Bryant stated if patient is not extubated by today after all MDs do their rounds on patient then start on tube feeding. Ordered to make consultation with RD to give their nutritional recommendations.
--- NOTE | 2022-08-11 10:51 | NUR ---
Ordered dietary consult. Waiting for RD to do bedside rounding or recommendations. Will continue to follow plan of care.
--- NOTE | 2022-08-11 10:53 | NUR ---
Galileo Geophysical Manager performing EEG at patient bedside. No acute distress or SOB noted. Will continue to follow plan of care.
--- NOTE | 2022-08-11 11:55 | NUR ---
Top Trimmer Galileo finished with with EEG. Patient tolerated EEG. No acute distress or SOB. VSS. Will continue to follow plan of care.
--- NOTE | 2022-08-11 14:20 | NUR ---
Contacted Dr. Bryant regarding patient's heart rate trending at the high 30's to low 40's. Awaiting MDs response. Will continue to follow plan of care.
--- NOTE | 2022-08-11 14:35 | NUR ---
status update: Dr. Bryant ordered EKG for patient. Will continue to follow plan of care.
--- NOTE | 2022-08-11 15:02 | NUR ---
Dr. Wallace rounded at patient bedside. New orders received. Per MD " start patient on Epinephrine drip, stop Propofol, and start him back on Versed." No acute distress or SOB noted. Will continue to follow plan of care.
[2022-08-11] MEDS ORDERED: EPINEPHrine 1 mg/mL 3 MG in DEXTROSE 5% 250 ML IV STA (15:06)
[2022-08-11] MEDS ORDERED: EPINEPHrine 1 mg/mL 1 MG in DEXTROSE 5% 250 ML IV PRN ×2 (15:25→16:30)
--- NOTE | 2022-08-11 15:29 | NUR ---
RT students at bedside performing EKG. Patient tolerated EKG. Will continue to follow plan of care.
--- NOTE | 2022-08-11 19:15 | NUR ---
Endorsed report to sales promotion coordinator nurse Rigoberto Lemons RN for continuity of care.
--- NOTE | 2022-08-11 19:15 | NUR ---
RECEIVED REPORT FROM [employer] NURSEDAJA RN. ALL CARES ASSUMED. RECEIVED PT IN BED ON SEMI-GENTILE'S POSITION WITH SIDE RAILS RAISED UP FOR SAFETY. AWAKE AND ORIENTED. ORALLY INTUBATED. ETT ON MECHANICAL VENTILATOR ON AC/VC MODE SETTINGS WITH FIO2 AT 30% RR-24CPM TV-500ML, PEEP-5, O2SAT AT 99%. WITH EQUAL CHEST RISE OBSERVED. WITH OGT - CLOSED - INTACT AND PATENT. ON SINUS RHYTHM ON FIRE BATTALION CHIEF. AFEBRILE. WITH RIGHT UPPER PICC LINE - DRY AND INTACT WITH FLOWING D5-0.9 NS AT 100ML.HR, EPINEPHRINE AT 1 MCG/MIN, VERSED AT 1 MG/HR - PATENT. WITH BILATERAL SOFT WRIST RESTRAINTS. WITH SHAW CATHETER DRAINING TO GRAVITY, YELLOW COLORED OUTPUT OBSERVED. WITH DRY HEALED SCAR ON LEFT LOWER MURRELL, THE REST IS INTACT. SAFETY AND SEIZURE PRECAUTION INITIATED AND MAINTAINED. WILL CLOSELY MONITOR PT.
--- NOTE | 2022-08-11 20:00 | NUR ---
EARLY SPONGE BATH DONE. LINENS CHANGED. POSITIONED WELL IN BED.
[2022-08-11] MEDS: DEXT 5% / NACL 0.9% 1,000 ML IV SCH (20:35)
--- NOTE | 2022-08-11 21:10 | NUR ---
PT SELF-EXTUBATED. PLACED ON NON-REBREATHER MASK. RT INFORMED. PT AT 99% SATURATION W/O SIGN OF DISTRESS. NORMOTENSIVE, HR-NORMAL. DR. REYES AND FRONT DESK AGENT DR. KOCH INFORMED OF PTS CURRENT STATUS. RT AT BEDSIDE. WILL MONITOR PT CLOSELY.
--- NOTE | 2022-08-11 22:44 | NUR ---
RECEIVED CALL FROM RN AT 21:15 THAT PT HAD DECANNULATED HIMSELF, PT WAS ETT TO VENT. PLACED PT ON NRB WHERE PT MAINTAINED 100% SPO2 AND NO WOB. PT WAS VERBAL AND STATED HE "FELT FINE". RN STATED THAT MD WAS NOTIFIED, STILL WAITING ON RESPONSE. AT 22:10 RT TITRATED PT DOWN TO 4L NC, PT SPO2 STILL 100%, HR 80, RR 18. PT STATED HE "FEELS BETTER". WILL CONT TO MONITOR PT.
[2022-08-12] VITALS (30 sets, daily range): BP systolic 119–197; BP diastolic 53–103; PULSE 17–86; RESP 14–24; TEMP 97–98.3; O2SAT 96–100
[2022-08-12] MEDS: PIPERACILLIN/TAZOBACTAM 3.375 GM in DEXTROSE 5% 50 ML IV SCH ×5 (00:24→23:19)
[2022-08-12 05:19] LABS: BASOPHILS % (AUTO) 0.7 % (0.0-2.0); EOSINOPHILS # (AUTO) 0.2 K/uL (0-0.4); HEMATOCRIT 40.9 % (36-52); HEMOGLOBIN 14.1 g/dL (12.0-18.0); LYMPHOCYTES # (AUTO) 1.2 K/uL (2.0-11.5); LYMPHOCYTES % (AUTO) 16.3 % (20.5-51.1); MEAN CORPUSCULAR HEMOGLOBIN 30 pg (27-31); MEAN CORPUSCULAR HGB CONC 34 g/dL (33-37); MEAN CORPUSCULAR VOLUME 86.5 fL (80-94); MONOCYTES # (AUTO) 0.5 K/uL (0.8-1.0); MONOCYTES % (AUTO) 6.9 % (1.7-9.3); NEUTROPHILS # (AUTO) 5.6 K/uL (1.8-7.7); NEUTROPHILS % (AUTO) 74.1 % (42.2-75.2); PLATELET COUNT (AUTO) 134 K/uL (140-450); RED BLOOD CELL COUNT(AUTO) 4.73 MIL/uL (4.20-6.10); RED CELL DISTRIBUTION WIDTH 14.4 % (11.6-13.7); WHITE BLOOD COUNT (AUTO) 7.5 K/uL (4.8-10.8)
[2022-08-12 05:39] LABS: CARBON DIOXIDE 24.7 mmol/L (21-32); CREATININE 0.7 mg/dL (0.6-1.3)
[2022-08-12 05:57] LABS: POTASSIUM 2.7 mmol/L (3.5-5.1)
--- NOTE | 2022-08-12 06:00 | NUR ---
TRISH CALLED REPORTING POTASSIUM LEVEL OF 2.7. K-RIDER STARTED.
--- NOTE | 2022-08-12 06:10 | NUR ---
BILATERAL SOFT WRIST RESTRAINTS REMOVED. PT CALM AND ASLEEP. BED ALARM TURNED ON.
--- NOTE | 2022-08-12 07:15 | NUR ---
Received report from fast food shift lead nurse Rigoberto Lemons RN. Currently on Dextrose 5% Sodium Chloride 0.9% and Potassium Chloride infusing to right upper arm PICC line with dressing dry and intact. No redness or ecchymosis to insertion site. Pt is makes and is able to verbalize needs. Lung sounds are clear in all lobes upon auscultation. Abdomen soft with all quadrants hyperactive. Patient skin intact except with dry healing scar on the left lower villegas no drainage noted. Tate catheter in place with clear yellow urine and no dependent loops and secured with stat lock. Standard precaution, HOB of bed at 30 degrees to prevent aspiration, bed of wheels locked and bed in lowest position, no acute distress or SOB noted. Will continue to follow plan of care.
--- NOTE | 2022-08-12 07:20 | NUR ---
PT IS SLEEPING WELL IN BED ON NASAL CANNULA AT 5 LPM SATTING AT 100%. NORMOTENSIVE BUT WITH EPISODES OF BRADYCARDIA. STILL ON EPINEPHRINE DRIP AT 1 MCG/MIN. REPORT GIVEN TO DAY SHIFT NURSE, SPENCER FARNSWORTH. ALL QUESTIONS ANSWERED.
[2022-08-12] MEDS: levETIRAcetam 100 MG/ML ORASYR NG SCH ×2 (08:21→21:06)
[2022-08-12] MEDS: PANTOPRAZOLE 40 MG INJ VIAL IVP SCH (08:22)
[2022-08-12] MEDS: DEXT 5% / NACL 0.9% 1,000 ML IV SCH ×3 (08:24→17:20)
--- NOTE | 2022-08-12 08:49 | NUR ---
Dr. Bryant rounded at patients bedside. Gave new orders. MD wants patient to get a swallowing evaluation by the speech therapist. MD only allowed clear liquids diet at the moment. Patients glucose levels are trending up MD ordered an A1C test for patient. Will continue to follow plan of care.
--- NOTE | 2022-08-12 09:38 | NUR ---
PATIENT HAS BEEN RE-SCREENED AND CATEGORIZED HIGH NUTRITION RISK. PATIENT WILL BE SEEN WITHIN 1-2 DAYS OF CONSULT. 08/11/22-08/13/[address] CONSULT RECEIVED FOR TUBE FEEDING
--- NOTE | 2022-08-12 11:40 | NUR ---
Tracy HUSSEIN rounded at patients bedside and spoke to patient regarding his nutrition. Instructed RD per MD Bryant to start patient on clear liquid diet until swallowing evaluation is done by the speech therapist.
--- NOTE | 2022-08-12 11:55 | NUR ---
08/12/22 RD INITIAL ASSESSMENT COMPLETED. PLEASE REFER TO NUTRITION ASSESSMENT UNDER CARE ACTIVITY FOR ESTIMATED NUTRITIONAL NEEDS. 1. CONTINUE NPO PER MD. IF PT PASSES SWALLOW EVAL, RECOMMEND REGULAR DIET PT TOLERATES. 2. MONITOR GI SYMPTOMS 3. RD TO FOLLOW-UP 3-5 DAYS, MODERATE RISK DOR[address]
--- NOTE | 2022-08-12 19:15 | NUR ---
Endorsed report to caustic cresylate shift superintendent registry Isiah PALMER. For continuity of care.
--- NOTE | 2022-08-12 20:51 | NUR ---
PT SITTING UP IN BED IN STABLE CONDITION AT THIS TIME WATCHING TV.
[2022-08-13] VITALS (16 sets, daily range): BP systolic 114–169; BP diastolic 65–93; PULSE 46–74; RESP 12–25; TEMP 97.4–98.2; O2SAT 96–100
[2022-08-13] MEDS: KCL 20 MEQ IN 100 mL PREMIX 200 ML IV PRN ×3 (00:18→10:18)
[2022-08-13] MEDS: DEXT 5% / NACL 0.9% 1,000 ML IV SCH ×2 (04:48→07:49)
[2022-08-13 05:22] LABS: BASOPHILS % (AUTO) 0.7 % (0.0-2.0); EOSINOPHILS # (AUTO) 0.5 K/uL (0-0.4); HEMATOCRIT 39.3 % (36-52); HEMOGLOBIN 13.4 g/dL (12.0-18.0); LYMPHOCYTES # (AUTO) 1.3 K/uL (2.0-11.5); LYMPHOCYTES % (AUTO) 20.4 % (20.5-51.1); MEAN CORPUSCULAR HEMOGLOBIN 29 pg (27-31); MEAN CORPUSCULAR HGB CONC 34 g/dL (33-37); MONOCYTES # (AUTO) 0.5 K/uL (0.8-1.0); MONOCYTES % (AUTO) 7.3 % (1.7-9.3); NEUTROPHILS # (AUTO) 4.2 K/uL (1.8-7.7); NEUTROPHILS % (AUTO) 63.6 % (42.2-75.2); PLATELET COUNT (AUTO) 130 K/uL (140-450); RED BLOOD CELL COUNT(AUTO) 4.56 MIL/uL (4.20-6.10); RED CELL DISTRIBUTION WIDTH 14.5 % (11.6-13.7); WHITE BLOOD COUNT (AUTO) 6.6 K/uL (4.8-10.8)
[2022-08-13 06:09] LABS: ANION GAP 10.8 (8-16); CARBON DIOXIDE 27.1 mmol/L (21-32); CREATININE 0.6 mg/dL (0.6-1.3)
[2022-08-13 06:18] LABS: POTASSIUM 2.9 mmol/L (3.5-5.1)
[2022-08-13] MEDS: PIPERACILLIN/TAZOBACTAM 3.375 GM in DEXTROSE 5% 50 ML IV SCH ×2 (06:26→12:36)
--- NOTE | 2022-08-13 07:00 | NUR ---
RECEIVED REPOSRT FROM ORIN RN DAY SHIFT PT IS ALERT AND ORIENTED X 4 VERBAL RESPONSIVE NO C/O PAIN NO SOB ON 2LP VIA NC VS TEMP 98.1 HR 50 SB BP 114/81 RR 17 O2 SAT 100% PT HAS MARIUM PICC D5NA AT 100ML/HR PT HAS F/C PATENT DRAINING YEL;LOW URINE PT ABLE TO MOVE ALL EXT W/O DIFFICULTY. k LAVEL TODAY IS 2.9 WITH STANDING ORDER TO GIVE 40mEQ IV IF K LEVEL IS <3.1. SWALLOW EVAL DONE BY INTRODUCING 15 ML OF WATER AND 60 ML OF WATER PT ABLE TO TOLERATE WITHOUT DROOLING OR COUGHING AND STOPPING IN BETWEEN. PT KEPT SAFE AND COMFORTABLE. PT BED LOCKED AND LOW POASITION CALL LIGHT WITHIN REACH.
--- NOTE | 2022-08-13 07:21 | NUR ---
TRANSFER OF CARE TO JUDI PALMER FOR CONTINUATION OF CARE.
[2022-08-13] MEDS ORDERED: levETIRAcetam 100 MG/ML ORASYR PO SCH ×2 (08:25→09:00)
[2022-08-13] MEDS: PANTOPRAZOLE 40 MG INJ VIAL IVP SCH (08:34)
--- NOTE | 2022-08-13 09:39 | NUR ---
DR HILL CAME IN AND SEE PT GET UPDATE FOR PT MADE AWARE NURSING SWALLOWING TEST DONE NO EPISODE OF COUGHING AND ASPIRATION NOTED. NO NEW ORDER GIVEN.
[2022-08-13] MEDS ORDERED: LEVE750T3 PO (10:14)
[2022-08-13] MEDS ORDERED: AMOX-1230 PO (10:14)
--- NOTE | 2022-08-13 11:43 | NUR ---
P.T. NOTES P.T. EVAL COMPLETED; REFER TO EVAL FOR DETAILS.
--- NOTE | 2022-08-13 12:15 | NUR ---
BARBARA MARTINEZ CAME I AND SEE PT GET UPDATE NO NEW ORDER GIVEN
[2022-08-13] MEDS ORDERED: LACTULOSE 20 GM/30 ML UDC PO SCH (13:00)
--- NOTE | 2022-08-13 13:32 | NUR ---
CALLED DR HILL TO GET ORDER FOR PICC LINE NECESSITY ORDER FOT D/C PICC LINE AND SHAW CATHETER
--- NOTE | 2022-08-13 14:48 | NUR ---
ANTHONY TILLEY SPOKE TO CRISTIAN NURSE FROM [facility] REPORT PT WILL BE GOING TO ROOM 105 VS WNL NO C/O CHEST PAIN NO SOB NO EPSIDOE OF SEIZURE.
--- NOTE | 2022-08-13 15:02 | NUR ---
PT DISCHARGE TODAY TO [facility] PT V/S WNL NO C/O CHEST PAIN NO SOB ALERT AND ORIENTED X3 VERBAL RESPONSIVE NO EPISODE OF SEIZURE NOTED.
== END 2022-08-13 15:35 | DRG 53 ==
LOC: MED 17:07 → MTU 20:36 → MIC 20:51
PROVIDERS: ADMIT Student in an Organized Health Care Education/Training Program; ATTEND Student in an Organized Health Care Education/Training Program
PROC: 5A1945Z Respiratory Ventilation, 24-96 Consecutive Hours (ICD-10-PCS; principal; 2022-08-09)
PROC: 0BH17EZ Insertion of Endotracheal Airway into Trachea, Via Natural or Artificial Opening (ICD-10-PCS; 2022-08-09)
PROC: 02HV33Z Insertion of Infusion Device into Superior Vena Cava, Percutaneous Approach (ICD-10-PCS; 2022-08-10)
PROC: B548ZZA Ultrasonography of Superior Vena Cava, Guidance (ICD-10-PCS; 2022-08-10)
DX: G40.401 Other generalized epilepsy and epileptic syndromes, not intractable, with status epilepticus (principal); J96.01 Acute respiratory failure with hypoxia; J18.9 Pneumonia, unspecified organism; E83.51 Hypocalcemia; R65.10 Systemic inflammatory response syndrome (SIRS) of non-infectious origin without acute organ dysfunction; Z20.822 Contact with and (suspected) exposure to COVID-19; E87.6 Hypokalemia; Z79.82 Long term (current) use of aspirin; Z79.899 Other long term (current) drug therapy; Z87.828 Personal history of other (healed) physical injury and trauma
CPT/HCPCS: 36415; 36600; 70450; 71045; 80048; 80053; 80305; 81001; 82550; 82553; 82803; 83036; 83735; 84484; 85025; 87070; 87081; 87205; 89220; 93005; 94002; 94003; 95816; 96361; 96365; 96375; 97116; 97163-GP; 99291; C9113; G0480; G0482; J0171; J0360; J1644; J1953; J2060; J2250; J2543; J2704; J3480; J3490; J7060; Q0092

== ENCOUNTER 2022-09-07 20:30 | Inpatient (IN) | payer OTHER ==
[~2022-09-07] VITALS: Ht 175.3 cm; Wt 110.7 kg
[2022-09-07 20:30] VITALS: BP 174/107; PULSE 138; RESP 19; TEMP 98.2; O2SAT 98
[~2022-09-07 20:30] MED LIST changes: +AMOX-1230 PO
--- NOTE | 2022-09-07 20:31 | NUR ---
pt biba from [facility] for seizure lasting [id number]. witnessed seizure. pt was up and pt fell whilst having a seizure. pt foaming at the month and seemed to have wound on tongue from biting.
[2022-09-07] MEDS ORDERED: PROPOFOL 1000 MG/100 ML PREMIX 100 ML IV ONE ×2 (20:34→22:05)
--- NOTE | 2022-09-07 20:35 | NUR ---
PT TAKEN TO BED 10
[2022-09-07] MEDS ORDERED: NACL 0.9% 1,000 ML IV ONE ×2 (20:45→22:00)
[2022-09-07] MEDS ORDERED: ROCURONIUM 50 MG/5 ML VIAL IV ONE (20:45)
[2022-09-07] MEDS ORDERED: PROPOFOL 200 MG/20 ML VIAL IV ONE (20:45)
--- NOTE | 2022-09-07 20:48 | NUR ---
# 16 FR OG tube placed. Placement checked by auscultation of instilled air into stomach. Tubing taped in place to prevent dislodging. Patient tolerated well.
--- NOTE | 2022-09-07 20:53 | NUR ---
# 16 FR Tate catheter with 10 ml utilizing sterile technique. Immediate return of 15 ml yellow urine noted. Bedside drainage bag placed below level of bladder. Urine sample collected and sent to lab. Pt tolerated procedure well.
--- NOTE | 2022-09-07 21:00 | NUR ---
CALLED TO ER FOR PT ARRIVED WHO WAS SEIZING. INTUBATED PT AT 2043. VENT SETTINGS RATE 16, Vt 500, PEEP 5, FiO2 100%. TUBE LOCATED AT 24 AT THE TEETH. VENT IS PLUGGED INTO RED OUTLET, AMBU BAG AT BEDSIDE, PT BLANCHE SETTINGS. WILL CONTINUE TO MONITOR PT
--- NOTE | 2022-09-07 21:00 | NUR ---
CALLED BY ER TO TRANSPORT PT TO CT. PATIENT TRANSPORTED WITHOUT INCIDENT. WILL CONTINUE TO MONITOR PT.
--- NOTE | 2022-09-07 21:04 | NUR ---
WALKED BLOOD TO LAB
[2022-09-07 21:25] LABS: BASOPHILS % (AUTO) 0.4 % (0.0-2.0); EOSINOPHILS % (AUTO) 0.2 % (0.0-4.0); HEMATOCRIT 45.9 % (36-52); HEMOGLOBIN 15.4 g/dL (12.0-18.0); LYMPHOCYTES # (AUTO) 2.9 K/uL (2.0-11.5); MEAN CORPUSCULAR HEMOGLOBIN 30 pg (27-31); MEAN CORPUSCULAR HGB CONC 34 g/dL (33-37); MEAN CORPUSCULAR VOLUME 87.7 fL (80-94); MONOCYTES # (AUTO) 0.9 K/uL (0.8-1.0); MONOCYTES % (AUTO) 8.2 % (1.7-9.3); NEUTROPHILS # (AUTO) 6.5 K/uL (1.8-7.7); NEUTROPHILS % (AUTO) 63.2 % (42.2-75.2); PLATELET COUNT (AUTO) 171 K/uL (140-450); RED BLOOD CELL COUNT(AUTO) 5.23 MIL/uL (4.20-6.10); RED CELL DISTRIBUTION WIDTH 13.9 % (11.6-13.7); WHITE BLOOD COUNT (AUTO) 10.3 K/uL (4.8-10.8)
[2022-09-07 21:43] LABS: ACETAMINOPHEN < 0.5 ug/ml (10-30); ALBUMIN 4.1 g/dL (3.4-5.0); ANION GAP 26.6 (8-16); ASPARTATE AMINOTRANSFERASE 32 U/L (15-37); CARBON DIOXIDE 16.5 mmol/L (21-32); CHLORIDE 99 mmol/L (98-107); CREATININE 1.1 mg/dL (0.6-1.3); GFR ARICAN-AMERICAN 91 mL/min (>90); GLUCOSE 142 mg/dL (74-106); POTASSIUM 3.1 mmol/L (3.5-5.1); SALICYLATE < 2.8 mg/dL (2.8-20.0); SODIUM SERUM 139 mmol/L (136-145); TOTAL BILIRUBIN 0.6 mg/dL (0.0-1.0); UREA NITROGEN, BLOOD 9 mg/dL (7-18)
[2022-09-07 21:52] VITALS: BP 174/107; PULSE 140; O2SAT 98
[2022-09-07 22:11] LABS: APPEARANCE,URINE CLEAR (CLEAR); BILIRUBIN,URINE NEGATIVE (NEGATIVE); BLOOD, URINE 1+ (NEGATIVE); COLOR,URINE YELLOW (YELLOW); LEUKOCYTE ESTERASE ,URINE NEGATIVE (NEGATIVE); NITRITE, URINE NEGATIVE (NEGATIVE); UGLUCOSE NEGATIVE (NEGATIVE)
[2022-09-07] MEDS ORDERED: ONDANSETRON 4 MG/2 ML VIAL ONE (22:11)
[2022-09-07] MEDS ORDERED: ONDANSETRON 4 MG/2 ML VIAL IVP ONE (22:15)
[2022-09-07 22:27] LABS: BARBITURATE, URINE NEGATIVE ng/ml (NEG <=200); BENZODIAZEPINE, URINE NEGATIVE ng/mL (NEG <=200); CANNABINOID, URINE POSITIVE ng/mL (NEG <=50); COCAINE, URINE NEGATIVE ng/mL (NEG <=300); OPIATE, URINE NEGATIVE ng/mL (NEG <=2000); PHENCYCLIDINE SCREEN,URINE NEGATIVE ng/mL (NEG <=25)
[2022-09-07 22:30] LABS: MAGNESIUM 1.9 mg/dL (1.8-2.4); PHOSPHORUS 3.3 mg/dL (2.5-4.9)
--- NOTE | 2022-09-07 22:30 | NUR ---
PT STARTING TO AWAKEN, BITING ETT TUBE, AND VOMITING. PROPOFOL AT 50MCG- CLOSED TO BEING MAXED OUT. ER MD MADE AWARE OF PATIENT CONDITION.
[2022-09-07] MEDS ORDERED: MIDAZOLAM MDV 50 MG in NACL 0.9% 40 ML IV STA (22:34)
[2022-09-07] MEDS ORDERED: PIPERACILLIN/TAZOBACTAM 3.375 GM in DEXTROSE 5% 50 ML IV ONE (22:35)
[2022-09-07] MEDS ORDERED: PIPERACILLIN/TAZOBACTAM 3.375 GM VIAL IV ONE (22:40)
[2022-09-07] MEDS ORDERED: MIDAZOLAM MDV 50 MG/10 ML VIAL IV ONE (22:56)
[2022-09-07 23:05] VITALS: PULSE 84; O2SAT 98
[2022-09-07] MEDS ORDERED: KCL 20 MEQ IN 100 mL PREMIX 200 ML IV ONE (23:15)
[2022-09-07] MEDS ORDERED: INTUBATION KIT MC ONE (23:38)
--- NOTE | 2022-09-07 23:54 | NUR ---
SPOKE WITH SMITHA PALMER, CASE MANAGEMENT. WILL CALL BACK WITH PLAN FOR ADMISSION.
[2022-09-08] VITALS (27 sets, daily range): BP systolic 99–156; BP diastolic 61–96; PULSE 41–137; RESP 16–30; TEMP 96.7–98.1; O2SAT 95–100
--- NOTE | 2022-09-08 00:18 | NUR ---
per ER MD Abigail robles to use central line after verifying CXR.
[2022-09-08] MEDS ORDERED: MAGNESIUM OXIDE 400 MG TAB PO PRN (00:20)
[2022-09-08] MEDS ORDERED: MAG SULF 2000 MG/WATER PREMIX 50 ML IV PRN (00:20)
[2022-09-08] MEDS ORDERED: DOCU-299 PO (00:21)
[2022-09-08] MEDS ORDERED: VITA1TAB44 PO (00:21)
[2022-09-08] MEDS ORDERED: ACET-2619 PO (00:21)
[2022-09-08] MEDS ORDERED: VITB12 PO (00:21)
[2022-09-08] MEDS ORDERED: LEVE750T3 PO (00:21)
[2022-09-08] MEDS ORDERED: ASPI-1822 PO (00:21)
[2022-09-08] MEDS ORDERED: AMLO10TA PO (00:21)
[2022-09-08] MEDS ORDERED: VIT B-1 PO (00:21)
[2022-09-08] MEDS ORDERED: MIDAZOLAM MDV 50 MG in NACL 0.9% 40 ML IV PRN (00:25)
--- NOTE | 2022-09-08 00:30 | NUR ---
CALLED TO TRANSFER PT TO ICU. PT TRANSPORTED WITHOUT INCIDENT. VENT PLUGGED INTO RED OUTLET, AMBU BAG AT BEDSIDE, SUCTION SETUP. PT TOLERATING VENT SETTINGS. WILL CONTINUE OT MONITOR PT.
--- NOTE | 2022-09-08 00:40 | NUR ---
Rt and Lt. wrist soft restraints place on pt per ERMD order.
--- NOTE | 2022-09-08 00:45 | NUR ---
Patient will be admitted to care of Lenore MCCOLLUM. Admited to ICU. Will go to room ICU bed 5. Belongings list completed. Report to Cristo PALMER.
--- NOTE | 2022-09-08 00:55 | NUR ---
see IV spreadsheet for vital signs
--- NOTE | 2022-09-08 01:00 | NUR ---
RECEIVED PT DIRECT FROM ER VIA [facility], ADMITTED FOR STATUS EPILEPTICUS. RECEIVED REPORT FROM ER NURSE, SPENCER SR. TRANSFERRED PT SAFELY TO ICU BED 5. GENERAL ASSESSMENT DONE. PT IS SEDATED BUT AROUSABLE TO SHAKING. WITH ETT TO MECH VENT AT AC V/C MODE AT FIO2 OF 50% TV-500 RATE OF 16 PEEP-5, SPO2 AT 100%, NO SIGNS OF RESP. DISTRESS. WITH OGT, NOT IN PLACE, TUBE MARKING PAST LIP LINE. RIGHT IJ LINE NOTED WITH NON-INTACT DRESSING, SOILED WITH FLUIDS AND IJ TIP LINE DISLODGED. IV DRIPS OF PROPOFOL AT 50 MCG/KG/MIN, VERSED AT 2 MG/HR AND NS LEAKING. NOTED WITH SINUS RHYTHM TO SINUS TACHYCARDIA. WITH BILATERAL PERIPHERAL IV ACCESS ON RIGHT HAND AND LEFT WRIST. RIGHT IV LINE FLOWING TO K RIDER AT 50 ML/HR. LEFT WRIST ATTACHED TO SALINE LOCK. WITH SHAW CATHTER DRAINING BY GRAVITY TO YELLOW COLORED URINE. WITH AREAS OF SCABS AND SCARS ON SKIN. NO OPEN WOUND NOTED. BED PUT IN LOW AND LOCKED POSITION. HOB AT 30 DEGREES. SAFETY AND SEIZURE PRECAUTIONS INITIATED. WILL MONITOR PT CLOSELY. Addendum: 09/08/22 at 0533 by RONDA DODSON RN BLEEDING FROM IJ SITE NOTED- PRESSURE APPLIED AND BLEEDING CONTROLLED. Addendum: 09/08/22 at 0534 by RONDA DODSON RN ALSO ON BILATERAL SOFT WRIST RESTRAINTS.
--- NOTE | 2022-09-08 01:30 | NUR ---
IV DRIPS TRANSFERRED TEMPORARILY TO RIGHT HAND IV ACCESS. SEVERAL IV INSERTION ATTEMPTS DONE BUT FAILED.
--- NOTE | 2022-09-08 02:00 | NUR ---
STILL ONGOING IV INSERTIONS ATTEMPTS. UNABLE TO INSERT IV LINE.
--- NOTE | 2022-09-08 02:24 | NUR ---
DR. LOPEZ INFORMED ABOUT DISLODGED IJ ACCESS. ALSO ASKED IF HE COULD ORDER PICC LINE INSERTION - NO RESPONSE YET.
--- NOTE | 2022-09-08 04:20 | NUR ---
0400 LOWERED FIO2 TO 30%. SATS 100%
[2022-09-08] MEDS: KCL 20 MEQ IN 100 mL PREMIX 200 ML IV PRN (04:30)
[2022-09-08] MEDS: PROPOFOL 1000 MG/100 ML PREMIX 100 ML IV PRN ×7 (04:36→23:17)
[2022-09-08] MEDS: NACL 0.9% 1,000 ML IV SCH ×3 (04:38→22:24)
--- NOTE | 2022-09-08 05:32 | NUR ---
09/07/22 20:38- prepping for intubation. ER MD Hayes, 2 RTs, 1 EMT, and 2 RNs at bedside. Crash cart on standby and pt attached to personnel monitor. 20:40- Propofol 200mg IVP pushed by Dr. Hayes on right hand and flushed with 10cc of NS 20:41- Rocuronium 100mg IVP pushed by Glenroy PALMER on left hand and flushed with 10cc of NS 20:44- Pt intubated and 24 at the lip 20:48- OG tube inserted 16 FR 20:53- Tate inserted
--- NOTE | 2022-09-08 07:30 | NUR ---
Report received from joint terminal attack controller nurse Rigoberto Lemons. Pt orally intubated with ETT in place A/C VC FIO2 24% VT 500, RR 16, Peep 5. Patient sedated with propofol infusing to left 20G IV at 50 mcg, NS at 80 ml/hr. Right 22G on left hand patent and saline locked. Lung sounds are present in all lobes upon auscultation. Abdomen soft with OG tube. Patient NPO except for medication. Tate catheter in place with clear yellow urine draining to gravity with no dependent loops and secured with stat lock. patients skin is intact with multiple scabs noted on bilateral lower extremities and hematoma noted on forehead. patient with no s/sx of seizures. no acute distess or SOB noted. will continue to follow plan of care. Addendum: 09/08/22 at 0924 by SUNI ATKINS RN Bilateral soft wrist restraints for patient safety. call light within reach. bed locked and to lowest position.
--- NOTE | 2022-09-08 07:55 | NUR ---
Pt. is currently sedated on Propofol and not able to provide consent for PICC line placement. Pt.'s mother SCHUYLER EPPS called at home [phone] and explained pt. being admitted to ICU for seizures, also explained pt.'s need for a PICC line placement, how they work and their use. She provided telephone consent for PICC line placement. Pt.'s primary RN Lynn Winston also spoke with her and confirmed telephone consent. Dr. Grover called for PICC line order.
--- NOTE | 2022-09-08 08:50 | NUR ---
ordered PICC placement. Pt.'s mother called at [phone] and obtained consent over the phone with Lynn Winston RN witnessing consent as well. Pt. is currently intubated and on Propofol and able to provide consent. PICC line nurse Nirav PALMER called for placement. He stated that he should be her in ICU by 10:00 - 11:00 am.
[2022-09-08] MEDS ORDERED: levETIRAcetam 500 MG TAB NG SCH (09:00)
[2022-09-08] MEDS ORDERED: NOREPINEPHRINE 8 MG in DEXTROSE 5% 250 ML IV PRN (09:55)
--- NOTE | 2022-09-08 12:30 | NUR ---
PICC line nurse Nirav inserted PICC line on the Right upper arm. Patient tolerated picc line. Will continue to follow plan of care.
--- NOTE | 2022-09-08 13:10 | NUR ---
PICC line ok to use. Will continue to follow plan of care.
--- NOTE | 2022-09-08 13:55 | NUR ---
Dr. Schneider rounded at patients bedside. No new orders received.
[2022-09-08 14:23] LABS: HEMATOCRIT 39.9 % (36-52); HEMOGLOBIN 13.7 g/dL (12.0-18.0); MEAN CORPUSCULAR HEMOGLOBIN 30 pg (27-31); MEAN CORPUSCULAR HGB CONC 34 g/dL (33-37); MEAN CORPUSCULAR VOLUME 86.2 fL (80-94); PLATELET COUNT (AUTO) 74 K/uL (140-450); RED BLOOD CELL COUNT(AUTO) 4.63 MIL/uL (4.20-6.10); WHITE BLOOD COUNT (AUTO) 7.7 K/uL (4.8-10.8)
[2022-09-08 14:39] LABS: ALBUMIN 3.3 g/dL (3.4-5.0); ANION GAP 13.1 (8-16); CARBON DIOXIDE 25.6 mmol/L (21-32); CREATININE 0.6 mg/dL (0.6-1.3); POTASSIUM 3.7 mmol/L (3.5-5.1); TOTAL BILIRUBIN 0.5 mg/dL (0.0-1.0)
[2022-09-08 14:44] LABS: BASOPHILS % (MANUAL) 0 % (0-2); EOSINOPHILS % (MANUAL) 1 % (0-4); LYMPHOCYTES % (MANUAL) 14 % (20-46); MONOCYTES % (MANUAL) 8 % (5-12)
--- NOTE | 2022-09-08 15:30 | NUR ---
Dr. Grover rounded at patient bedside. Per MD Grover wants patient to go on Keppra IV. Will continue to follow plan of care.
--- NOTE | 2022-09-08 15:42 | NUR ---
Spoke with asset availability leader Radha regarding patients recent 08:50 labs. Heparin administered at 1414 last platelet levels at 21:17 were 174. MD Schneider stated that no labs were drawn from the morning when he rounded at 14:00. Yvon Woodson asset availability leader stated to barely had put in the labs in hospital's computer system from 08:50. Labs were not put in from asset availability leader until now.
[2022-09-08 16:19] LABS: HEMATOCRIT 40.5 % (36-52); HEMOGLOBIN 13.7 g/dL (12.0-18.0)
--- NOTE | 2022-09-08 19:30 | NUR ---
RECEIVED REPORT FROM DAY SHIFT NURSEDAJA RN FOR CONTINUITY OF CARE. ALL CARES ASSUMED. GENERAL ASSESSMENT DONE. RECEIVED PT ON SEMI-GENTILE'S POSITION WITH SIDE RAILS RAISED UP. PT IS SEDATED, NO SPONTANEOUS EYE OPENING OBSERVED. WITH TEMPORAL HEMATOMA NOTED OVER LEFT SIDE FROM PREVIOUS SEIZURE HX. WITH ETT ATTACHED TO VENT AT A/C VC MODE FIO2-24% TV-500ML, RATE-16CPM PEEP-5. SPO2 AT 99%, NOT IN DISTRESS WITH EQUAL CHEST RISE OBSERVED. WITH OGT- CLOSED. SINUS BRADYCARDIA NOTED ON MOBILE DISC JOCKEY. WITH NEWLY INSERTED RIGHT UPPER ARM PICC LINE - DRESSING DRY AND INTACT- INFUSING WITH NS AT 80 ML/HR, PROPOFOL AT 50 MCG/KG/MIN, VERSED AT 1 MG/HR. WITH BILATERAL PERIPHERAL IV ACCESS OVER HANDS- G20 ON RIGHT HAND, G22 ON LEFT HAND AND BOTH ATTACHED TO SALINE LOCK -PATENT. WITH ABDOMEN ROUND AND SOFT AND NON DISTENDED. WITH SHAW CATHETER DRAINING BY GRAVITY TO YELLOW COLORED URINE. WITH AREAS OF SCABS AND SCARS ON BILATERAL LEGS. LEGS ALSO NOTED WITH NON-PITTING EDEMA. POSITIONED PT WELL IN BED. BED PLACED IN LOW AND LOCKED POSITION. SIDE RAILS MAINTAINED AND CALL LIGHT PLACED WITHIN REACHED. WILL MONITOR PT CLOSELY. Addendum: 09/08/22 at 2217 by RONDA DODSON RN ADDENDUM: WITH BILATERAL SOFT WRIST RESTRAINTS. NO SIGNS OF INJURY.
--- NOTE | 2022-09-08 19:30 | NUR ---
Endorsed report to shift production associate nurse SPENCER Lemons for continuity of care.
--- NOTE | 2022-09-08 19:40 | NUR ---
DAY SHIFT NURSE ENDORSED THAT DR. LOPEZ VERBALLY SAID THAT PT BE ON NPO AND OGT BE CLOSED/CLAMPED AND THAT HE WANTS KEPPRA BE GIVEN IVPB AND NOT PO.
--- NOTE | 2022-09-08 20:00 | NUR ---
TURNED PT SIDES. ORAL CARE GIVEN. PROPOFOL DRIP TITRATED DOWN FROM 50 TO 45 MCG/KG/MIN. ASSESSED CLOSELY RESPONSIVENESS.
--- NOTE | 2022-09-08 20:00 | NUR ---
MESSAGED DR. LOPEZ DIRECTLY TO CLARIFY DOSAGE AND HE REPLIED 1000MG. ALSO CLARIFIED THE FREQUENCY.
[2022-09-08] MEDS ORDERED: levETIRAcetam 1,000 MG in NACL 0.9% 100 ML IV SCH (21:00)
--- NOTE | 2022-09-08 21:00 | NUR ---
INFORMED DR. LOPEZ ABOUT LATEST PLATELET LEVEL OF 74. AND INFORMED THAT I WILL NOT BE GIVING DUE HEPARIN DOSE BECAUSE OF LATEST PLT LEVEL. NO RESPONSE FROM DOCTOR. FOLLOWED UP WITH LAB DEPT REGARDING RESULT OF LAST DRAWN BLOOD AT 4PM ENDORSED.
--- NOTE | 2022-09-08 22:00 | NUR ---
REPOSITIONED. KEPT SAFE IN BED.
[2022-09-08] MEDS ORDERED: levETIRAcetam 100 MG/ML VIAL IV ONE (22:29)
[2022-09-08] MEDS: levETIRAcetam 1,000 MG in NACL 0.9% 100 ML IV SCH (22:30)
[2022-09-09] VITALS (31 sets, daily range): BP systolic 99–153; BP diastolic 59–94; PULSE 34–86; RESP 16–22; TEMP 96.5–98.9; O2SAT 96–100
--- NOTE | 2022-09-09 | NUR ---
REPOSITIONED IN BED; ORAL CARE PROVIDED. KEPT SAFE.
--- NOTE | 2022-09-09 02:00 | NUR ---
REPOSITIONED. KEPT SAFE IN BED.
--- NOTE | 2022-09-09 02:53 | NUR ---
PT. HR GOES DOWN TO 30'S AND GOES BACK TO 50'S. CALLED DR. BRISCOE AND REPORTED THE HR AND THAT PT. ON PROPOFOL AND VERSED DRIP. REPORTED TO DR. BRISCOE THAT WE ARE TITRATING DOWN THE PROPOFOL DRIP, WE RECEIVED PT. FROM DAYSHIFT ON 50 MCG/KG/MIN AND NOW IT IS 20 MCG/KG/MIN AND ON VERSED DRIP 1 MG/HR. HE ORDERED TO BACK OFF WITH THE SEDATION AND JUST KEEP MONITORING.
--- NOTE | 2022-09-09 04:00 | NUR ---
MORNING CARE DONE. REPOSITIONED IN BED; ORAL CARE PROVIDED. KEPT SAFE.
[2022-09-09 05:17] LABS: BASOPHILS % (AUTO) 0.4 % (0.0-2.0); EOSINOPHILS # (AUTO) 0.1 K/uL (0-0.4); EOSINOPHILS % (AUTO) 1.6 % (0.0-4.0); HEMATOCRIT 39.4 % (36-52); HEMOGLOBIN 13.6 g/dL (12.0-18.0); LYMPHOCYTES # (AUTO) 1.3 K/uL (2.0-11.5); MEAN CORPUSCULAR HEMOGLOBIN 30 pg (27-31); MEAN CORPUSCULAR HGB CONC 34 g/dL (33-37); MEAN CORPUSCULAR VOLUME 85.7 fL (80-94); MONOCYTES # (AUTO) 0.5 K/uL (0.8-1.0); MONOCYTES % (AUTO) 7.5 % (1.7-9.3); NEUTROPHILS # (AUTO) 4.1 K/uL (1.8-7.7); NEUTROPHILS % (AUTO) 68.5 % (42.2-75.2); PLATELET COUNT (AUTO) 103 K/uL (140-450); RED CELL DISTRIBUTION WIDTH 14.3 % (11.6-13.7)
[2022-09-09 05:27] LABS: ALBUMIN 3.4 g/dL (3.4-5.0); ANION GAP 12.5 (8-16); CARBON DIOXIDE 25.5 mmol/L (21-32); CREATININE 0.6 mg/dL (0.6-1.3); TOTAL BILIRUBIN 0.4 mg/dL (0.0-1.0)
--- NOTE | 2022-09-09 07:15 | NUR ---
Report received from casting supervisor nurse Rigoberto Lemons RN. Pt orally intubated with ETT in place A/C VC FIO2 24% VT 500, RR 16, Peep 5. Patient sedated with propofol 20 mcg/kg/min, Versed 1mg/hr and NS at 80 ml/hr. Right 22G on left hand patent and saline locked. Lung sounds are present in all lobes upon auscultation. Abdomen soft with OGT tube in place. Patient NPO except for medication. Tate catheter in place with clear yellow urine draining to gravity with no dependent loops and secured with stat lock. patients skin is intact with multiple scabs noted on bilateral lower extremities and hematoma noted on forehead. patient with no s/sx of seizures. no acute distress or SOB noted. Bilateral soft wrist restraints for patient safety. Call light within reach. Bed locked and to lowest position. Will continue to follow plan of care.
--- NOTE | 2022-09-09 07:20 | NUR ---
REPORT GIVEN TO DAY SHIFT NURSEDAJA, SPENCER FOR CONTINUITY OF CARE. ALL QUESTIONS ANSWERED. PT STILL ON VERSED DRIP AT 1 MG/HR, PROPOFOL DRIP AT 20 MCG/KG/MIN AND NS AT 80 ML/HR. STILL ON ETT TO VENT. PT STILL ON SINUS BRADYCARDIA. GREEN URINE OUTPUT OF 1100 OBSERVED. NO BM.
--- NOTE | 2022-09-09 07:40 | NUR ---
RECEIVED ON A [employer]iz[employer]APE R860 VENTILATOR PLUGGED INTO RED OUTLET TOLERATING WELL WITHOUT COMPLICATIONS NOTED TO AN ENDOTRACHEAL TUBE #8.0 SECURED AT 24cm TEETH/GUM LINE WITH AN ANCHOR FAST CUFF PRESSURE CHECKED NOTED AMBU BAG AT BEDSIDE LOC SEDATED RESTING COMFORTABLY NO DISTRESS NOTED EQUAL CHEST RISE GOOD AERATION THROUGHOUT BILATERAL LUNG PRIDE AIRWAY PATENT
--- NOTE | 2022-09-09 08:25 | NUR ---
Called Dr. Schneider regarding patients bradycardia of 33-40. Per MD "put patient on Dopamine drip" Will continue to follow plan of care.
[2022-09-09] MEDS ORDERED: DOPamine 400 MG/D5W PREMIX 250 ML IV PRN (08:30)
[2022-09-09] MEDS: KCL 20 MEQ IN 100 mL PREMIX 200 ML IV PRN (08:49)
[2022-09-09] MEDS: levETIRAcetam 1,000 MG in NACL 0.9% 100 ML IV SCH (09:16)
--- NOTE | 2022-09-09 09:51 | NUR ---
Called Dr. Schneider to notify him of patients increase in blood pressure 160/85, HR 91 and quick elevation of heart rate. Per MD "adjust dopamin drip" no orders were given for BP.
--- NOTE | 2022-09-09 10:38 | NUR ---
STABLE SEDATED GOOD CHEST RISE ENDOTRACHEAL TUBE SUCTION FOR LARGE THIN YELLOW SECRETIONS; SPUTUM SPECIMEN OBTAINED FOR VAP PROTOCOL; SAMPLE FORWARDED TO LAB
--- NOTE | 2022-09-09 11:17 | NUR ---
PATIENT HAS BEEN SCREENED AND CATEGORIZED HIGH NUTRITION RISK. PATIENT WILL BE SEEN WITHIN 1-2 DAYS OF ADMISSION. 09/09/ [facility] REFERRAL RECEIVED NOT APPLICABLE; STILL HIGH RISK D/T PT INTUBATED IN ICU [address]
[2022-09-09] MEDS ORDERED: DIVALPROEX 250 MG TABEC PO SCH (12:10)
--- NOTE | 2022-09-09 12:35 | NUR ---
Dr. Garcia rounded at patients bedside. put in the order for Depakote 750mg PO BID for seizures. No new orders received.
--- NOTE | 2022-09-09 12:45 | NUR ---
Paged Dr. Garcia due to patients new Depakote pills are enteric coated and unable to crush. No response from MD will continue to follow plan of care.
--- NOTE | 2022-09-09 13:29 | NUR ---
Dr. Schneider rounded at patient bedside. Per MD plan is to extubate patient tomorrow 09/10. Doctor wants Versed to be held and to continue with Propofol to maintain patient comfortable. Per MD wants patient to start sedation vacation first thing in the morning, CPAP trials see how he tolerates it to further continue the extubation process.
--- NOTE | 2022-09-09 13:30 | NUR ---
Paged Dr. Garcia again to follow up on patients EC pills. No call back.
--- NOTE | 2022-09-09 13:33 | NUR ---
SEDATED NO APPARENT DISTRESS NOTED GOOD CHEST RISE AIRWAY PATENT
--- NOTE | 2022-09-09 13:40 | NUR ---
REVIEWED WITH DR. LORETTA OLMSTEAD PATIENT CARE PLAN FOR 09/10: TITRATE OFF PROPOFOL; SEDATION VACATION; CPAP TRIAL IF TOLERATING ABG AFTER 1 HOUR; CALL MD WITH RESULTS; POSSIBLE EXTUBATION
[2022-09-09] MEDS: NACL 0.9% 1,000 ML IV SCH (14:06)
--- NOTE | 2022-09-09 14:30 | NUR ---
Dr. Garcia called ICU unit back to give no orders to switch patients Depakote medication to liquid form rather than PO. Will continue to follow plan of care.
[2022-09-09] MEDS: PROPOFOL 1000 MG/100 ML PREMIX 100 ML IV PRN ×2 (16:37→23:25)
--- NOTE | 2022-09-09 16:58 | NUR ---
SEDATED STABLE GOOD CHEST RISE ENDOTRACHEAL SUCTION FOR LARGE THIN YELLOW SECRETIONS AIRWAY PATENT
--- NOTE | 2022-09-09 19:15 | NUR ---
Endorsed report to SPENCER Balderas for continuity of care.
--- NOTE | 2022-09-09 19:59 | NUR ---
RECEIVED REPORT FROM DAY SHIFT NURSE SPENCER CULP. PT ORALLY INTUBATED WITH ETT IN PLACE A/C VC BQV524% VT 500, RR 15, AND PEEP 5. PATIENT WITH IV PROPOFOL AT 20 MCG/KG/MIN AND DOPAMIN 1 MCG/KG/MIN DUE TO BRADYCARDIA ACCORDING TO DAY SHIFT NURSE. NS RUNNING AT 80ML/HR. RIGHT 22 G ON LEFT HAND CLEAN, DRY, AND PATENT WITH SALINE LOCKED. PT IS LAYING IN BED WITH HOB ELEVATED AT 30 DEGREE. LUNG SOUNDS ARE CLEAR IN ALL LOBES UPON AUSCULTATION. OGT TUBE IS IN PLACE AND BOWEL SOUNDS ARE NORMAL WITH NO PAIN. SHAW CATHETER IS IN PLACE WITH URINE YELLOW AND CLEAR. NO INDEPENDENT LOOPS AND STAT LOCK IS IN PLACE. NO S/S OF DISTRESS. NO C/O CHEST PAIN OR HEADACHE. NO SOB UPON ASSESSMENT. PT ORIENTED AND ALERT. FOLLOW SIMPLE COMMANDS. SKIN IS INTACT WITH SCABS NOTICED ON LOWER EXTREMITIES BILATERALLY. PT WITH SOFT WRIST RESTRAINTS FOR PATIENT SAFETY. CALL LIGHT WITHIN REACH. BED AT LOWEST POSITION AND LOCKED. CONTINUE TO FOLLOW PLAN OF CARE AND MONITOR.
[2022-09-09] MEDS: VALPROIC ACID 250 MG/5 ML UDC NG SCH (20:16)
[2022-09-09] MEDS: levETIRAcetam 1,500 MG in NACL 0.9% 100 ML IV SCH (21:00)
--- NOTE | 2022-09-09 23:55 | NUR ---
PT IS AWAKE AND ALERT, FOLLOWS COMMANDS, PER PATIENT REQUEST PLACED PATIENT ON CPAP 10/5. PT IS GETTING ADEQUATE TIDAL VOLUMES, SATURATION MAINTAINS AT 95%, RESPIRATORY RATE MAINTAINING AT 17 BREATHS PER MINUTE. CALL LIGHT WITHIN REACH, PT IS IN NO DISTRESS, WILL CONTINUE TO MONITOR
[2022-09-10] VITALS (22 sets, daily range): BP systolic 92–159; BP diastolic 41–98; PULSE 49–84; RESP 15–57; TEMP 98.5–98.7; O2SAT 94–99
[2022-09-10] MEDS: NACL 0.9% 1,000 ML IV SCH (02:59)
[2022-09-10 05:02] LABS: BASOPHILS % (AUTO) 0.5 % (0.0-2.0); EOSINOPHILS # (AUTO) 0.3 K/uL (0-0.4); EOSINOPHILS % (AUTO) 5.1 % (0.0-4.0); HEMATOCRIT 40.4 % (36-52); HEMOGLOBIN 13.9 g/dL (12.0-18.0); LYMPHOCYTES # (AUTO) 1.5 K/uL (2.0-11.5); LYMPHOCYTES % (AUTO) 25.6 % (20.5-51.1); MEAN CORPUSCULAR HEMOGLOBIN 30 pg (27-31); MEAN CORPUSCULAR HGB CONC 34 g/dL (33-37); MONOCYTES # (AUTO) 0.3 K/uL (0.8-1.0); MONOCYTES % (AUTO) 5.7 % (1.7-9.3); NEUTROPHILS # (AUTO) 3.8 K/uL (1.8-7.7); NEUTROPHILS % (AUTO) 63.1 % (42.2-75.2); PLATELET COUNT (AUTO) 104 K/uL (140-450); RED BLOOD CELL COUNT(AUTO) 4.64 MIL/uL (4.20-6.10)
[2022-09-10 05:47] LABS: ALBUMIN 3.2 g/dL (3.4-5.0); CREATININE 0.6 mg/dL (0.6-1.3); PHOSPHORUS 2.9 mg/dL (2.5-4.9); TOTAL BILIRUBIN 0.5 mg/dL (0.0-1.0)
[2022-09-10] MEDS: PROPOFOL 1000 MG/100 ML PREMIX 100 ML IV PRN (06:45)
--- NOTE | 2022-09-10 07:30 | NUR ---
Report received from senior gl accountant nurse SPENCER Balderas. Pt orally intubated with ETT in place A/C VC FIO2 24% VT 500, RR 16, Peep 5. Patient sedated with propofol 20 mcg/kg/min and NS at 80 ml/hr infusing to right upper arm PICC line. Right 22G on left hand patent and saline locked. Lung sounds are present in all lobes upon auscultation. Abdomen soft with OGT tube in place. Patient NPO except for medication. Tate catheter in place with clear yellow urine draining to gravity with no dependent loops and secured with stat lock. patients skin is intact with multiple scabs noted on bilateral lower extremities and hematoma noted on forehead. patient with no s/sx of seizures. no acute distress or SOB noted. Bilateral soft wrist restraints for patient safety. Call light within reach. Bed locked and to lowest position. Will continue to follow plan of care.
--- NOTE | 2022-09-10 07:49 | NUR ---
RECEIVED ON A [employer] R860 VENTILATOR PLUGGED INTO RED OUTLET TOLERATING WELL WITHOUT ADVERSE REACTIONS NOTED TO AN ENDOTRACHEAL TUBE #8.0 SECURED AT 24cm TEETH/GUM LINE WITH AN ANCHOR FAST CUFF PRESSURE CHECKED NOTED AMBU BAG AT BEDSIDE SEDATED AT THIS TIME RESTING COMFORTABLY EQUAL CHEST RISE ENDOTRACHEAL SUCTION FOR SMALL THIN PALE YELLOW SECRETIONS AIRWAY PATENT
--- NOTE | 2022-09-10 07:50 | NUR ---
PATIENT PLACED ON SEDATION VACATION; VERSED OFF 09/09; PROPOFOL TURNED OFF BY MARCELA/VEGETABLE FARMWORKER
--- NOTE | 2022-09-10 07:54 | NUR ---
ENDORSED TO SUNI RN DAY SHIFT FOR CONTINUITY OF CAR
--- NOTE | 2022-09-10 08:00 | NUR ---
PLACED ON CPAP TRIAL NOTED; GOOD CHEST RISE AIRWAY PATENT; MARCELA/HURL SHAKER NOTIFIED
--- NOTE | 2022-09-10 08:00 | NUR ---
PATIENT STARTED ON CPAP TRIALS. SYMMETRICAL RISE AND FALL OF CHEST. VSS.
--- NOTE | 2022-09-10 08:40 | NUR ---
ON OR ABOUT THIS TIME PATIENT PRESENTING WITH INCREASE AGITATION WITH HR +130 BPM; PATIENT PLACED BACK ON PROPOFOL SEDATION AT 20mcg BY MARCELA/CRIMINAL ANALYST
--- NOTE | 2022-09-10 08:40 | NUR ---
Patient started becoming agitated. RT Erwin aware of agitation episode. Started patient on propofol 20 mcg again.
--- NOTE | 2022-09-10 08:40 | NUR ---
Patient became agitated while CPAP trials continued. Patient became tachycardic in the 130's. Propofol was resumed at 20mcg.
--- NOTE | 2022-09-10 08:42 | NUR ---
ON OR ABOUT THIS TIME PATIENT NOW PRESENTING WITH DECREASED AGITATION WITH HR HIGH 60'S LOW 70'S CPAP TRIAL CONTINUANCE
[2022-09-10] MEDS ORDERED: LORazepam 2 MG/ML VIAL IVP PRN (08:45)
--- NOTE | 2022-09-10 08:45 | NUR ---
Dr. Schneider rounded at patient bedside. MD present when patient was currently having CPAP trials. Per MD instructed RT to extubate patient. No ABG's or CPAP needed. Patient is relaxed at the moment. No further agitation noted.
--- NOTE | 2022-09-10 08:45 | NUR ---
ON OR ABOUT THIS TIME DR. LORETTA OLMSTEAD ROUNDING AT BEDSIDE; Karrie GARCIA RCP AND MARCELA/SPENCER ATENDING; REVIEWED CPAP TRIAL SETTINGS; DIAGNOSTIC READINGS; SEDATION VACATION START TIME 07; CONTINUANCE OF PROPOFOL AT 0842 DUE TO AGITATION; PULMONARY STATUS VORBO (RESPIRATORY) DR. OLMSTEAD: EXTUBATED; CPAP ABG NOT REQUIRED - CANCEL; HHN Q4 PRN FOR SOB; OXYGEN SATURATION GREATER THAN 90%;
--- NOTE | 2022-09-10 08:54 | NUR ---
STABLE GOOD CHEST RISE ENDOTRACHEAL TUBE SUCTION FOR SMALL THIN PALE YELLOW SECRETIONS OROPHARYNGEAL SUCTION FOR LARGE CLEAR SECRETIONS AIRWAY PATENT
--- NOTE | 2022-09-10 08:58 | NUR ---
Patient was extubated. Tolerated extubation with no SOB, VSS. MD present when extubation occurred. Per MD "stop dopamine, propofol." No further orders received.
--- NOTE | 2022-09-10 08:58 | NUR ---
PATIENT EXTUBATED NO ADVERSE REACTIONS NOTED PLACED ON A COOL AEROSOL TO MASK AT 28%/6 LPM
[2022-09-10] MEDS: VALPROIC ACID 250 MG/5 ML UDC NG SCH (09:00)
[2022-09-10] MEDS: levETIRAcetam 1,500 MG in NACL 0.9% 100 ML IV SCH ×2 (09:00→20:47)
--- NOTE | 2022-09-10 09:00 | NUR ---
Patient started on simple mask and on 8L/min at the moment. No SOB or acute distress noted post extubation. Will continue to follow plan of care.
--- NOTE | 2022-09-10 09:30 | NUR ---
Dr. Adams rounded at patients bedside. Aware of patients extubation. Informed Dr. Adams that NS was at 146 per MD "stop NS and leave TKO" will continue to follow plan of care. Patients restraints are d/c'd.
--- NOTE | 2022-09-10 09:35 | NUR ---
MD Adams stated if patient passes swallowing evaluation patient can go back to PO Depakote. Will continue to follow plan of care.
--- NOTE | 2022-09-10 09:35 | NUR ---
Per MD Adams have patient have a swallowing evaluation done before giving any meals. Will continue to follow plan of care.
[2022-09-10] MEDS ORDERED: VANCOMYCIN PER PHARMACY MC PRN (12:00)
--- NOTE | 2022-09-10 12:01 | NUR ---
Received phone call from lab regarding blood culture with positive gram cocci at 1148. Reported to Dr. Adams and reported pt with PICC line on right upper arm with no current orders for antibiotics at 1156. New order received.
[2022-09-10] MEDS: KCL 20 MEQ IN 100 mL PREMIX 200 ML IV PRN (12:12)
--- NOTE | 2022-09-10 12:18 | NUR ---
I DID PASS 0900 SCHEDULE MED ON TIME , I SCAN BUT THE COMPUTER DID NOT TAKE AT THE TIME EMMANUEL THE PHARMACIST AWARE.
--- NOTE | 2022-09-10 12:25 | NUR ---
Interior Assemblies Installer DRILL SHARPENER called [facility], [phone]/. DRILL SHARPENER spoke to Laurence Noriega there at [facility], stated pts. Mom, Rosangela Aldana is pts. Emergency contact, . As per Laurence Noriega at [facility], pt. does not have any of the above listed problems. Pt. has numerous health conditions such as obesity, Afib, epilepsy, hypertension, Diabetes, TBI, TIA, EHOH, HTN. Pt. is ambulatory with a cane. Pt. is in a regular bed, is diabetic however does not have to check glucose levels. Once pt. is medically cleared, they will return to [facility]. DRILL SHARPENER will remain available as needed. Addendum: 09/10/22 at 1416 by Amrita Us Interior Assemblies Installer DRILL SHARPENER recevied a request from family to speak to her in ICU. DRILL SHARPENER introduced self to pt. and pts mom. Pt. was asking if he could be re-located from his placement, [facility] to his moms place, [facility]. Pt. stated he is able to get access to alcohol and if he were living at his mom's facility, she would care for him. Pt. stated he wants to take care of his mom. DRILL SHARPENER asked pt. how he gets his alcohol supply. Pt. stated he can ask other people there to buy it and bring it to him. Pt. has been drinking a good part of his live, beer. When asked, pt. stated he has never participated in any substance abuse , drinking program and asked if his mom could accompany him to any program to stop drinking. Pts. mom, Rosangela concurred with everything this pt. stated. Mom was in agreement to have pt. re-locate to her facility. DRILL SHARPENER explained there were a lot of factors to consider. Pts. insurance and if it is contracted, if there is room, if facility would accept pt. etc. DRILL SHARPENER told family she would share this request with FILIBERTO Adames. DRILL SHARPENER will remain available as needed.
--- NOTE | 2022-09-10 13:37 | NUR ---
MS PLANNING A 52 YEAR OLD MALE PATIENT ADMITTED TO ICU 09/08 FOR WITNESSED SEIZURE WHILE STANDING, FELL AND HIT HIS HEAD.PATIENT WAS NOTED TO HAVE SEIZURE FOR APPROXIMATELY 20-30 MINUTES PRIOR TO ARRIVAL TO ER. PATIENT WAS INTUBATED AND SEDATED IN ER. PATIENT WAS EXTUBATED AND ON A FACE MASK THIS AM .DOPAMINE DRIP WAS DISCONTINUED.PATIENT IS ALERT AND ORIENTED AND FOLLOWS COMMAND. PATIENT IS REQUESTING TO BE TRANSFERRED TO SNF WHERE HIS MOTHER IS IN.WILL TALK TO INSURANCE AND SEE IF SNF IS A POSSIBILITY.CM TO FOLLOW. Addendum: 09/10/22 at 1406 by MIKE RODRIGUEZ CM LATE ENTRY CXR - SHOWS CARDIOMEGALY AND VASCULAR CONGESTION.CT HEAD - NO SIGNIFICANT MIDLINE SHIFT.ON VANCOMYCIN.NEURO ON BOARD. ON KEPPRA AND VALPROIC ACID.PER NEURO PATIENT CAN BE DISCHARGED ONCE SEIZURE FREE X 24 HOURS. Addendum: 09/12/22 at 1313 by ROSINA TIRADO RECEIVED ORDER FO PATIENT TO GO TO SNF FOR PT. FAXED ALL PAPERWORK TO [facility] PER PATIENT THAT WHERE HE WANTS TO GO. SPOKE WITH JORGE AT [facility] WHO INFORMED ME THAT THEY HAVE NO MALE BEDS, AND THAT PATIENT HAS BEEN TRYING TO GET IN [facility] FOR A WHILE NOW AND BECAUSE OF THE DISCHARGE PLAN THEY WONT ACCEPT HIM. HE REQUESTED FOR LAMP INSPECTOR TO SPEAK WITH HIM LATER SO THAT HE HAS TIME TO THINK ON WHAT HE WANTS.
--- NOTE | 2022-09-10 13:59 | NUR ---
09/10/22 RD INITIAL ASSESSMENT COMPLETED PLEASE REFER TO NUTRITION ASSESSMENT UNDER CARE ACTIVITY FOR ESTIMATED NUTRITIONAL NEEDS. 1. CONTINUE NPO DIET TOLERATED PENDING SWALLOW EVALUATION. PLEASE FOLLOW COLLAR SETTER RECOMMENDATIONS AND ADD CARDIAC TO RECOMMENDATION FOR TEXTURE. 2. RD WILL CONTINUE TO MONITOR PO INTAKE/TEXTURES, WEIGHT, SKIN INTEGRITY AND NUTRITION RLEATED LABS. 3. RD TO FOLLOW-UP 3-5 DAYS, MODERATE RISK ISRAEL CHARLES RD
[2022-09-10] MEDS: VANCOMYCIN 1,000 MG in DEXTROSE 5% 250 ML IV SCH ×2 (14:27→20:47)
--- NOTE | 2022-09-10 15:38 | NUR ---
Speech TherapistKermit came to perform swallow evaluation at patients bedside. Handed patient water and ice chips. Patient tolerated ice and water without difficulty. Speech therapist stated "we can give him regular food with thin liquids."
[2022-09-10] MEDS ORDERED: ALBUTEROL SULFATE/IPRATROPIU 3 ML SOL IH PRN (17:25)
--- NOTE | 2022-09-10 17:40 | NUR ---
Dinner was brought to patient. Patient tolerated dinner. No difficulty chewing or swallowing. Will continue to follow plan of care.
--- NOTE | 2022-09-10 19:23 | NUR ---
1900 removed patient from cool aerosol. was on pt due to post extubation. patients sats on room air are 98%. no sob noted no 02 needed at this time
--- NOTE | 2022-09-10 19:30 | NUR ---
RECEIVED REPORT FROM DAY SHIFT NURSE DAJARN FOR CONTINUITY OF CARE. ALL CARES ASSUMED. GENERAL HEALTH CONDITION ASSESSED. PT ON SEMI-GENTILE'S POSITION, WITH PADDED SIDE RAILS RAISED UP. ALERT AND ORIENTED X 4. ON ROOM AIR SATURATING AT 96%, NOT IN RESPIRATORY DISTRESS. WITH RIGHT UPPER ARM PICC LINE WITH DOUBLE LUMEN CATHETER, DRESSING DRY AND INTACT-INFUSING WITH NORMAL SALINE AT TKO RATE. WITH PERIPHERAL IV ACCESS OVER RIGHT HAND GAUGE 20 ATTACHED TO SALINE LOCK- PATENT AND INTACT. ON SINUS BRADYCARDIA TO SINUS RHYTHM ON HELP DESK ENGINEER. SKIN INTACT. WITH SHAW CATHETER DRAINING B Y GRAVITY TO GREENISH URINE OUTPUT. NO COMPLAINTS OF PAIN OR DISCOMFORTS. KEPT COMFORTABLE AND SAFE IN BED. KEPT BED IN LOW AND LOCKED POSITION. SAFETY AND SEIZURE PRECAUTIONS OBSERVED. CALL LIGHT PLACED WITHIN REACHED. WILL MONITOR PT CLOSELY.
[2022-09-10] MEDS: DIVALPROEX 250 MG TABEC PO SCH (20:46)
--- NOTE | 2022-09-10 22:00 | NUR ---
PT IS TOLERATING ROOM AIR. NOT IN RESPIRATORY DISTRESS. ABLE TO SELF-TURN.
[2022-09-11] VITALS (15 sets, daily range): BP systolic 122–171; BP diastolic 72–94; PULSE 45–82; RESP 16–24; TEMP 97.1–98.7; O2SAT 94–99
--- NOTE | 2022-09-11 | NUR ---
PT RESTING COMFORTABLY. NOT IN RESPIRATORY DISTRESS. ABLE TO SELF-TURN.
--- NOTE | 2022-09-11 02:00 | NUR ---
SLEEPING COMFORTABLY. NOT IN RESPIRATORY DISTRESS. ABLE TO SELF-TURN. V/S STABLE.
--- NOTE | 2022-09-11 04:00 | NUR ---
PT SLEEPING COMFORTABLY IN BED. ABLE TO REPOSITION HIMSELF. NO DISTRESS NOTED.
--- NOTE | 2022-09-11 04:40 | NUR ---
OFFERED PT FOR MORNING CARE AND ORAL CARE BUT REFUSED AT THIS TIME. HE SAID HE WANNA DO IT IN THE MORNING AFTER BREAKFAST.
[2022-09-11] MEDS: VANCOMYCIN 1,000 MG in DEXTROSE 5% 250 ML IV SCH (04:50)
[2022-09-11 05:12] LABS: BASOPHILS % (AUTO) 0.6 % (0.0-2.0); EOSINOPHILS # (AUTO) 0.5 K/uL (0-0.4); EOSINOPHILS % (AUTO) 9.8 % (0.0-4.0); HEMATOCRIT 38.2 % (36-52); HEMOGLOBIN 13.1 g/dL (12.0-18.0); LYMPHOCYTES # (AUTO) 1.4 K/uL (2.0-11.5); LYMPHOCYTES % (AUTO) 27.6 % (20.5-51.1); MEAN CORPUSCULAR HEMOGLOBIN 30 pg (27-31); MEAN CORPUSCULAR HGB CONC 34 g/dL (33-37); MONOCYTES # (AUTO) 0.4 K/uL (0.8-1.0); MONOCYTES % (AUTO) 7.2 % (1.7-9.3); NEUTROPHILS # (AUTO) 2.8 K/uL (1.8-7.7); NEUTROPHILS % (AUTO) 54.8 % (42.2-75.2); PLATELET COUNT (AUTO) 100 K/uL (140-450); RED BLOOD CELL COUNT(AUTO) 4.44 MIL/uL (4.20-6.10); RED CELL DISTRIBUTION WIDTH 13.6 % (11.6-13.7); WHITE BLOOD COUNT (AUTO) 5.1 K/uL (4.8-10.8)
[2022-09-11 05:33] LABS: ALBUMIN 3.1 g/dL (3.4-5.0); ANION GAP 11.9 (8-16); ASPARTATE AMINOTRANSFERASE 24 U/L (15-37); CARBON DIOXIDE 27.4 mmol/L (21-32); CHLORIDE 108 mmol/L (98-107); CREATININE 0.6 mg/dL (0.6-1.3); GFR ARICAN-AMERICAN 183 mL/min (>90); GLUCOSE 86 mg/dL (74-106); PHOSPHORUS 4.6 mg/dL (2.5-4.9); POTASSIUM 3.3 mmol/L (3.5-5.1); SODIUM SERUM 144 mmol/L (136-145); TOTAL BILIRUBIN 0.7 mg/dL (0.0-1.0); UREA NITROGEN, BLOOD 11 mg/dL (7-18)
--- NOTE | 2022-09-11 06:00 | NUR ---
PT SLEEPING COMFORTABLY IN BED. ABLE TO REPOSITION HIMSELF. NO DISTRESS NOTED.
--- NOTE | 2022-09-11 06:30 | NUR ---
CENTRAL LINE DRESSING CHANGED ASEPTICALLY. KEPT SECURED. BACKFLOW CHECKED- POSITIVE. MORNING CARE DONE.
--- NOTE | 2022-09-11 06:43 | NUR ---
RECEIVED PT ON ROOM AIR. SATURATION 97%. EQUAL CHEST RISE, CLEAR BREATH SOUNDS. NO SOB, NO DISTRESS NOTED. CALL LIGHT ARE WITHIN REACH OF PT. WILL CONTINUE TO MONITOR.
--- NOTE | 2022-09-11 07:00 | NUR ---
PT IS AWAKE AND ALERT X 4. NO COMPLAINTS OF PAIN OR DISCOMFORTS. NOT IN RESP DISTRESS. STILL ON BRADYCARDIA AND WITH SOME EPISODES OF SLIGHT BP ELEVATION. AFEBRILE THE WHOLE SHIFT. ABLE TO SLEEP WELL DURING MY SHIFT.
--- NOTE | 2022-09-11 07:10 | NUR ---
RE[facility] GIVEN [facility] FOR CONTINUITY OF CARE. ALL CARES ASSUMED. Addendum: 09/11/22 at 0715 by RONDA DODSON RN ALL QUESTIONS ANSWERED.
--- NOTE | 2022-09-11 07:15 | NUR ---
Report received from night warehouse selector nurse SPENCER Lemons. Pt AOx4 on room air with no SOB or exacerbations noted. NS TKO at 3 ml/hr infusing to right upper arm PICC line. Right 22G on the right hand patent and saline locked. Lung sounds are present in all lobes upon auscultation. Abdomen soft. Patient able to tolerate breakfast. Tate catheter in place with clear yellow urine draining to gravity with no dependent loops and secured with stat lock. patients skin is intact with multiple scabs noted on bilateral lower extremities and hematoma noted on forehead. patient with no s/sx of seizures. no acute distress or SOB noted. Call light within reach. Bed locked and to lowest position. Will continue to follow plan of care.
--- NOTE | 2022-09-11 08:24 | NUR ---
Tate catheter removed after deflating balloon with no difficulty. NO bleeding noted. Pt. tolerated with no complaints of pain or discomfort. Pt. in bed with no distress, no seizure activity. Will cont. to monitor.
[2022-09-11] MEDS: levETIRAcetam 1,500 MG in NACL 0.9% 100 ML IV SCH (09:00)
--- NOTE | 2022-09-11 09:07 | NUR ---
Dr. Adams at bedside to examine. Pt. to be transferred to telemetry for further care. Pt. does NOT want to move in to same senior care where he resides. Pt. states that he "wants to move in to same senior care as" his MOM's. For possible better seizure medication control and observation. Dr. Adams orders case management to make the necessary arrangements. Pt. with no acute distress. No seizure activity. NO acute distress. Will cont to monitor.
[2022-09-11] MEDS: DIVALPROEX 250 MG TABEC PO SCH ×2 (10:21→20:55)
--- NOTE | 2022-09-11 10:30 | NUR ---
Pt. given towels and warm water for bedside cleaning and washing of his face and body. Pt.'s mustache and eyebrows hair trimmed at pt.'s request. Pt. later stated "I really like it, it feels good.". All linen changed in pt.'s bed and clean gown placed on pt. NO seizure activity. Pt. to be transferred to telemetry floor. Awaiting bed assignment.
[2022-09-11] MEDS ORDERED: DIVA250E1 PO (12:50)
[2022-09-11] MEDS ORDERED: KEP500 PO (12:50)
--- NOTE | 2022-09-11 13:15 | NUR ---
Pt. with large BM at bedside commode. Assisted and help to commode. Pt. tolerated with no difficulty. NO seizure activity. NO acute distress. NO SOB. Pt. denies any pain or discomfort.
[2022-09-11] MEDS: POTASSIUM CHLORIDE 10 MEQ TABER PO PRN (13:29)
--- NOTE | 2022-09-11 16:40 | NUR ---
RECEIVED PT FROM ICU. REPORT GIVEN BY SUNI PALMER. TRANSPORTED PER WHEELCHAIR. PLACED IN BED COMFORTABLY. ALERT AND ORIENTED X 4. RESP. EVEN AND UNLABORED. AMBULATORY. PICC LINE INTACT TO MARIUM DOUBLE LUMEN. WITH SKIN CONDITIONS FOLLOWS: BLE SCAB, LT LEG SCAR, SKIN INTACT. NO C/O PAIN OR DISCOMFORT. CALL LIGHT KEPT WITHIN REACH. WILL CONTINUE TO MONITOR.
--- NOTE | 2022-09-11 17:00 | NUR ---
Transferred patient to room 102 A and received by nurse SPENCER Scott. Patients belongings were transferred, no belongings left in the ICU unit. Patient AOx4, vss, no episode of seizures during transfer.
--- NOTE | 2022-09-11 17:27 | NUR ---
P.T. NOTES P.T. EVAL COMPLETED; REFER TO EVAL FOR DETAILS.
--- NOTE | 2022-09-11 19:20 | NUR ---
BEDSIDE REPORT GIVEN TO EMT I/99 FOR CONTINUITY OF CARE. REMAINS STABLE.
--- NOTE | 2022-09-11 19:30 | NUR ---
RECEIVED REPORT FROM DAY SHIFT NURSE EBER FOR CONTINUITY OF CARE. PATIENT IS A&O X4. PATIENT IS ON ROOM AIR; BREATHING IS NORMAL WITH SYMMETRICAL RISE AND FALL OF CHEST. IV IS A PICC LINE MARIUM DOUBLE LUMEN; NO FLUIDS RUNNING AT THIS TIME (SALINE LOCKED). PATIENT IS SITTING UP IN BED WATCHING TV. BED IS IN LOWEST POSITION, WHEELS LOCKED, AND CALL LIGHT IN PLACE. WILL CONTINUE TO OBSERVE PATIENT.
[2022-09-11] MEDS: levETIRAcetam 500 MG TAB PO SCH (20:54)
--- NOTE | 2022-09-11 21:01 | NUR ---
HEPARIN WAS HELD DUE TO LOW PLATELETS (100). 2100 PO MEDS ADMINISTERED SUCCESSFULLY WITHOUT ANY ISSUES WITH SWALLOWING. PATIENT IS SITTING UP IN BED WATCHING TV. WILL CONTINUE TO OBSERVE PATIENT.
[2022-09-12] VITALS (7 sets, daily range): BP systolic 119–153; BP diastolic 66–89; PULSE 48–74; RESP 17–18; TEMP 97.1–98.2; O2SAT 95–98
--- NOTE | 2022-09-12 01:00 | NUR ---
LOOKED IN ON PATIENT. PATIENT IS SLEEPING; LYING ON HIS RIGHT SIDE IN SEMI-FOWLERS POSITION. BREATHING IS NORMAL WITH SYMMETRICAL RISE AND FALL OF CHEST. WILL CONTINUE TO OBSERVE PATIENT.
--- NOTE | 2022-09-12 04:15 | NUR ---
PATIENT HAS SLEPT THROUGHOUT THE NIGHT. BREATHING IS NORMAL WITH SYMMETRICAL RISE AND FALL OF CHEST. BED IS IN LOWEST POSITION, WHEELS LOCKED, CALL LIGHT IN PLACE. WILL CONTINUE TO OBSERVE PATIENT.
[2022-09-12 06:28] LABS: BASOPHILS % (AUTO) 0.8 % (0.0-2.0); EOSINOPHILS # (AUTO) 0.5 K/uL (0-0.4); HEMATOCRIT 37.1 % (36-52); HEMOGLOBIN 12.8 g/dL (12.0-18.0); LYMPHOCYTES # (AUTO) 1.6 K/uL (2.0-11.5); LYMPHOCYTES % (AUTO) 29.2 % (20.5-51.1); MEAN CORPUSCULAR HEMOGLOBIN 30 pg (27-31); MEAN CORPUSCULAR HGB CONC 35 g/dL (33-37); MEAN CORPUSCULAR VOLUME 85.7 fL (80-94); MONOCYTES # (AUTO) 0.5 K/uL (0.8-1.0); MONOCYTES % (AUTO) 8.3 % (1.7-9.3); NEUTROPHILS # (AUTO) 2.9 K/uL (1.8-7.7); NEUTROPHILS % (AUTO) 52.7 % (42.2-75.2); PLATELET COUNT (AUTO) 105 K/uL (140-450); RED BLOOD CELL COUNT(AUTO) 4.33 MIL/uL (4.20-6.10); RED CELL DISTRIBUTION WIDTH 14.2 % (11.6-13.7); WHITE BLOOD COUNT (AUTO) 5.5 K/uL (4.8-10.8)
[2022-09-12 06:36] LABS: ALBUMIN 3.1 g/dL (3.4-5.0); ANION GAP 12.3 (8-16); CARBON DIOXIDE 28.1 mmol/L (21-32); CREATININE 0.6 mg/dL (0.6-1.3); MAGNESIUM 1.6 mg/dL (1.8-2.4); PHOSPHORUS 3.9 mg/dL (2.5-4.9); POTASSIUM 3.4 mmol/L (3.5-5.1); TOTAL BILIRUBIN 0.5 mg/dL (0.0-1.0)
--- NOTE | 2022-09-12 07:54 | NUR ---
ENDORSED TO DAY SHIFT NURSE MEME FOR CONTINUITY OF CARE. PATIENT IS STABLE.
[2022-09-12] MEDS: POTASSIUM CHLORIDE 10 MEQ TABER PO PRN (09:51)
[2022-09-12] MEDS: levETIRAcetam 500 MG TAB PO SCH (09:53)
[2022-09-12] MEDS: DIVALPROEX 250 MG TABEC PO SCH (09:54)
--- NOTE | 2022-09-12 11:19 | NUR ---
PATIENT'S MOTHER CALLED PATIENT WHILE NURSE PRESENT, NURSE ASKED MOTHER THE NAME OF FACILITY THAT MOTHER IS RESIDENT IN. MOTHER WS WORRY ABOUT HER SON'S PHONE. LATE ON, PATIENT STATE THAT HIS MOTHER TOLD HIM THE FACILITY, AND SNF IS IN [place]. WILL CONTINUE TO MONITOR Addendum: 09/12/22 at 1704 by Carey Lee RN RECEIVE ORDER THAT PATIENT IS DISCHARGE BACK TO [facility], DISCHARGE INSTRUCTION GIVE, DISCHARGE CONSENT SIGN, PICC LINE , WRIST BAND, & TEL. MONITOR BOX REMOVE, PATIENT STABLE AND ABLE TO DRESS HIMSELF. PRIOR GIVE DISCHARGE INSTRUCTION TO PATIENT, NURSE CALLED [facility] AND GIVE REPORT TO MEDICAL STAFF, JAMIE.
--- NOTE | 2022-09-12 15:50 | NUR ---
Dtp Operator: In to see patient this afternoon at the request of SPENCER Adames. The patient is requesting to go to [facility], however they have advised they have no beds available. I went in to see patient. I discussed his discharge order and his placement desires. Per patient, he would like to be placed with his mother at [facility]. I advised him that I was informed that [facility] has no beds available today, therefore he needs to return to the SNF he came from and can ask the hospital social worker at [facility] to see about future availability at [facility]. Patient is aware that there is a D/C order in place and he will D/C today. The patient is in agreement to and aware he will need to discuss transfer. options once he arrives at . RN advised that [facility] is needed for the patient's discharge back to . [facility]: [phone]
== END 2022-09-12 17:19 | DRG 133 ==
LOC: MED 20:30 → MIC 09-08 00:18 → MMU 09-08 00:18 → MIC 09-08 00:34 → MTU 09-11 16:46
PROVIDERS: ADMIT Hospitalist; ATTEND Hospitalist
PROC: 5A1945Z Respiratory Ventilation, 24-96 Consecutive Hours (ICD-10-PCS; principal; 2022-09-08)
PROC: 02HV33Z Insertion of Infusion Device into Superior Vena Cava, Percutaneous Approach (ICD-10-PCS; 2022-09-08)
PROC: B548ZZA Ultrasonography of Superior Vena Cava, Guidance (ICD-10-PCS; 2022-09-08)
PROC: 0BH17EZ Insertion of Endotracheal Airway into Trachea, Via Natural or Artificial Opening (ICD-10-PCS; 2022-09-08)
PROC: 4A10X4Z Monitoring of Central Nervous Electrical Activity, External Approach (ICD-10-PCS; 2022-09-09)
DX: J96.00 Acute respiratory failure, unspecified whether with hypoxia or hypercapnia (principal); R65.10 Systemic inflammatory response syndrome (SIRS) of non-infectious origin without acute organ dysfunction; G40.201 Localization-related (focal) (partial) symptomatic epilepsy and epileptic syndromes with complex partial seizures, not intractable, with status epilepticus; E66.9 Obesity, unspecified; F12.10 Cannabis abuse, uncomplicated; I10 Essential (primary) hypertension; W18.39XA Other fall on same level, initial encounter; F10.939 Alcohol use, unspecified with withdrawal, unspecified; Y90.0 Blood alcohol level of less than 20 mg/100 ml; J45.909 Unspecified asthma, uncomplicated; S00.93XA Contusion of unspecified part of head, initial encounter; Y93.89 Activity, other specified; Y92.89 Other specified places as the place of occurrence of the external cause; Y99.8 Other external cause status; Z79.899 Other long term (current) drug therapy; Z79.82 Long term (current) use of aspirin; Z87.820 Personal history of traumatic brain injury; Z68.36 Body mass index [BMI] 36.0-36.9, adult
CPT/HCPCS: 31500; 36415; 36556; 36600; 51702; 70450; 71045; 80053; 80173; 80202; 80305; 81001; 82550; 82803; 83605; 83735; 84100; 84484; 85018; 85025; 87040; 87070; 87205; 89220; 92526; 94002; 94003; 95816; 96374; 96375; 97112; 97116; 97163-GP; 97530; 99291; 99292; G0480; G0482; J1265; J1644; J1953; J2250; J2405; J2543; J2704; J3370; J3480; J3490; J7060; Q0092

== ENCOUNTER 2022-10-22 22:00 | Emergency (ER) | payer OTHER ==
[~2022-10-22] VITALS: Ht 167.6 cm; Wt 117.9 kg
[~2022-10-22 22:00] MED LIST changes: +ACET-2619 PO; -AMLO10TA PO; -AMOX-1230 PO; +DIVA250E1 PO; +DOCU-299 PO; +KEP500 PO; -LEVE750T3 PO; +VIT B-1 PO; +VITA1TAB44 PO; +VITB12 PO
[2022-10-22 22:01] VITALS: BP 148/79; PULSE 88; RESP 18; TEMP 97.4; O2SAT 99
[2022-10-22 22:30] VITALS: BP 148/79; PULSE 88; RESP 18; TEMP 97.4
[2022-10-22 22:47] VITALS: O2SAT 99
== END 2022-10-23 04:26 ==
LOC: MED 22:00
DX: F10.129 Alcohol abuse with intoxication, unspecified (principal); J45.909 Unspecified asthma, uncomplicated; E11.9 Type 2 diabetes mellitus without complications; I10 Essential (primary) hypertension; G40.909 Epilepsy, unspecified, not intractable, without status epilepticus; E66.9 Obesity, unspecified; Z68.41 Body mass index [BMI] 40.0-44.9, adult; Z79.899 Other long term (current) drug therapy
CPT/HCPCS: 99283